=== PATIENT | female | born 1950 | race Caucasian/White ===

== ENCOUNTER 2017-04-22 20:43 | Observation (INO) | payer OTHER ==
[2017-04-22] MEDS ORDERED: ASPIRIN 81 MG PO STA (21:15)
[2017-04-22] MEDS ORDERED: NITROGLYCERIN OINT 1 INCH/GM PACKET TOPICAL STA (21:15)
--- NOTE | 2017-04-22 21:18 | ED ---
General Adult HPI - General Chief complaint: Chest Pain Stated complaint: Chest pain Time Seen by Provider: 04/22/17 21:00 Source: patient, RN notes reviewed Mode of arrival: ambulatory Limitations: no limitations - History of Present Illness Initial comments: Patient is a pleasant 66-year-old female presenting to the emergency department complaining of chest discomfort. Patient has had mild symptoms intermittently throughout the week. Symptoms have been worse the past couple hours. Symptoms are mild at this time rated 3/10. Patient did take one nitroglycerin and aspirin home with some improvement. Discomfort feels like heaviness. There is occasionally radiation to the left shoulder back. No associated dyspnea. Patient does have some associated nausea and sweating. Patient did have a heart attack years ago however is unclear symptoms are similar or not. No leg pain or leg swelling. - Related Data Home Medications Medication Instructions Recorded Confirmed Aspirin 325 mg PO DAILY 10/06/15 10/06/15 Biotin 5 mg PO DAILY 10/06/15 10/06/15 Calcium Carbonate [Calcium] 600 mg PO HS 10/06/15 10/06/15 Carvedilol [Coreg] 12.5 mg PO BID 10/06/15 10/06/15 Garlic 1 tab PO HS 10/06/15 10/06/15 Losartan [Cozaar] 50 mg PO DAILY 10/06/15 10/06/15 Ubidecarenone [Co Q-10] 200 mg PO DAILY 10/06/15 10/06/15 Previous Rx's Medication Instructions Recorded Atorvastatin [Lipitor] 80 mg PO HS #30 tab 10/07/15 Nitroglycerin Sl Tabs [Nitrostat] 0.4 mg SUBLINGUAL Q5M PRN #5 tab 10/07/15 Prasugrel [Effient] 10 mg PO DAILY #30 tab 10/07/15 glipiZIDE [Glucotrol] 10 mg PO AC-BID #60 tablet 10/07/15 metFORMIN HCL [Glucophage] 850 mg PO BID #60 tab 10/07/15 Allergies Allergy/AdvReac Type Severity Reaction Status Date / Time No Known Allergies Allergy Verified 04/22/17 21:44 Review of Systems ROS Statement: Those systems with pertinent positive or pertinent negative responses have been documented in the HPI. ROS Other: All systems not noted in ROS Statement are negative. Constitutional: Denies: fever Eyes: Denies: eye pain ENT: Denies: ear pain Respiratory: Denies: cough, dyspnea Cardiovascular: Reports: chest pain Endocrine: Reports: fatigue Gastrointestinal: Reports: nausea. Denies: abdominal pain Genitourinary: Denies: dysuria Musculoskeletal: Denies: arthralgia Skin: Denies: rash Neurological: Denies: weakness Past Medical History Past Medical History: Coronary Artery Disease (CAD), Hyperlipidemia, Hypertension, Myocardial Infarction (CA) Additional Past Medical History / Comment(s): 10/06/15 Pt presented to [facility] ER with chest pain on Tuesday10/03/15 with SOB and lasted most of that day. Then again with chest pain today. She is admitted with unstable angina and went to the cath lab technologist for stent placement in LAD. Other HX: CA 2009 with ischemic cardiomyopathy. Last Myocardial Infarction Date:: 02/16/10 History of Any Multi-Drug Resistant Organisms: None Reported Past Surgical History: Heart Catheterization With Stent, Orthopedic Surgery, Tubal Ligation Additional Past Surgical History / Comment(s): 10/06/15 PTCA with stent to LAD. 02/16/10 PTCA with stent to LAD, L carpal tunnel release. Past Anesthesia/Blood Transfusion Reactions: No Reported Reaction Date of Last Stent Placement:: 10/06/15 Past Psychological History: No Psychological Hx Reported Smoking Status: Former smoker Past Alcohol Use History: None Reported Past Drug Use History: Marijuana - Past Family History Father Family Medical History: Coronary Artery Disease (CAD), Dementia, Diabetes Mellitus Additional Family Medical History / Comment(s): Father is . He had 4 vessel bypass. Mother Family Medical History: Rheumatoid Arthritis (RA) Additional Family Medical History / Comment(s): Mother is . She had polymyalgia and spinal stenosis. General Exam Limitations: no limitations General appearance: alert, in no apparent distress Head exam: Present: atraumatic Eye exam: Present: normal appearance, PERRL ENT exam: Present: normal oropharynx Neck exam: Present: normal inspection Respiratory exam: Present: normal lung sounds bilaterally. Absent: chest wall tenderness Cardiovascular Exam: Present: regular rate, normal rhythm Expanded Peripheral pulses: 2+: Radial (R), Radial (L), Dorsalis Pedis (R), Dorsalis Pedis (L) GI/Abdominal exam: Present: soft. Absent: tenderness Extremities exam: Present: normal inspection. Absent: pedal edema, calf tenderness Neurological exam: Present: alert Psychiatric exam: Present: normal affect, normal mood Skin exam: Present: normal color Course Vital Signs 04/22/17 04/22/17 20:45 22:11 Temperature 97.9 F 97.7 F Pulse Rate 67 63 Respiratory 18 19 Rate Blood Pressure 185/88 152/79 O2 Sat by Pulse 98 95 Oximetry EKG Findings - EKG Comments: EKG Findings:: Normal sinus rhythm 68. GA 184. QRS 72. QT 424. QTC 450. Normal axis. Normal QRS. No acute ST change. Medical Decision Making - Medical Decision Making Patient reevaluated and somewhat improved. Patient updated on results and plan. Dr. Marcos has been paged for admission for Dr. ramirez. - Lab Data Result diagrams: 04/22/17 21:08 04/22/17 21:08 Lab Results 04/22/17 04/22/17 04/22/17 Range/Units 21:08 21:08 21:08 WBC 6.6 (3.8-10.6) k/uL RBC 4.46 (3.80-5.40) m/uL Hgb 13.6 (11.4-16.0) gm/dL Hct 39.3 (34.0-46.0) % MCV 88.1 (80.0-100.0) fL MCH 30.6 (25.0-35.0) pg MCHC 34.7 (31.0-37.0) g/dL RDW 13.4 (11.5-15.5) % Plt Count 187 (150-450) k/uL Neutrophils % 51 % Lymphocytes % 36 % Monocytes % 6 % Eosinophils % 3 % Basophils % 1 % Neutrophils # 3.4 (1.3-7.7) k/uL Lymphocytes # 2.4 (1.0-4.8) k/uL Monocytes # 0.4 (0-1.0) k/uL Eosinophils # 0.2 (0-0.7) k/uL Basophils # 0.1 (0-0.2) k/uL PT (9.0-12.0) sec INR (<1.2) APTT (22.0-30.0) sec D-Dimer (<0.60) mg/L FEU Sodium 138 (137-145) mmol/L Potassium 3.9 (3.5-5.1) mmol/L Chloride 103 (98-107) mmol/L Carbon Dioxide 22 (22-30) mmol/L Anion Gap 13 mmol/L BUN 15 (7-17) mg/dL Creatinine 0.79 (0.52-1.04) mg/dL Est GFR (MDRD) Af Amer >60 (>60 ml/min/1.73 sqM) Est GFR (MDRD) Non-Af >60 (>60 ml/min/1.73 sqM) Glucose 141 H (74-99) mg/dL Calcium 9.8 (8.4-10.2) mg/dL Magnesium 1.6 (1.6-2.3) mg/dL Total Bilirubin 0.7 (0.2-1.3) mg/dL AST 20 (14-36) U/L ALT 34 (9-52) U/L Alkaline Phosphatase 81 (38-126) U/L Total Creatine Kinase 209 H (30-135) U/L CK-MB (CK-2) 4.2 H* (0.0-2.4) ng/mL CK-MB (CK-2) Rel Index 2.0 Troponin I <0.012 (0.000-0.034) ng/mL Total Protein 7.3 (6.3-8.2) g/dL Albumin 4.7 (3.5-5.0) g/dL 04/22/17 Range/Units 21:08 WBC (3.8-10.6) k/uL RBC (3.80-5.40) m/uL Hgb (11.4-16.0) gm/dL Hct (34.0-46.0) % MCV (80.0-100.0) fL MCH (25.0-35.0) pg MCHC (31.0-37.0) g/dL RDW (11.5-15.5) % Plt Count (150-450) k/uL Neutrophils % % Lymphocytes % % Monocytes % % Eosinophils % % Basophils % % Neutrophils # (1.3-7.7) k/uL Lymphocytes # (1.0-4.8) k/uL Monocytes # (0-1.0) k/uL Eosinophils # (0-0.7) k/uL Basophils # (0-0.2) k/uL PT 11.0 (9.0-12.0) sec INR 1.1 (<1.2) APTT 24.9 (22.0-30.0) sec D-Dimer 0.33 (<0.60) mg/L FEU Sodium (137-145) mmol/L Potassium (3.5-5.1) mmol/L Chloride (98-107) mmol/L Carbon Dioxide (22-30) mmol/L Anion Gap mmol/L BUN (7-17) mg/dL Creatinine (0.52-1.04) mg/dL Est GFR (MDRD) Af Amer (>60 ml/min/1.73 sqM) Est GFR (MDRD) Non-Af (>60 ml/min/1.73 sqM) Glucose (74-99) mg/dL Calcium (8.4-10.2) mg/dL Magnesium (1.6-2.3) mg/dL Total Bilirubin (0.2-1.3) mg/dL AST (14-36) U/L ALT (9-52) U/L Alkaline Phosphatase (38-126) U/L Total Creatine Kinase (30-135) U/L CK-MB (CK-2) (0.0-2.4) ng/mL CK-MB (CK-2) Rel Index Troponin I (0.000-0.034) ng/mL Total Protein (6.3-8.2) g/dL Albumin (3.5-5.0) g/dL - Radiology Data Radiology results: image reviewed (Chest x-ray shows no acute process) Critical Care Time Critical Care Time: Yes Total Critical Care Time: 32 Disposition Clinical Impression: Unstable angina pectoris Disposition: ADMITTED IP TO THIS [facility] Referrals: Catalina Kelley MD [Primary Care Provider] - 1-2 days Decision Time: 22:13
[2017-04-22 21:25] LABS: Basophils # (A) 0.1 k/uL (0-0.2); Basophils % (A) 1 %; CH 32.1; CHCM 36.6; Eosinophils # (A) 0.2 k/uL (0-0.7); Eosinophils % (A) 3 %; HCT 39.3 % (34.0-46.0); HDW 2.56; HGB 13.6 gm/dL (11.4-16.0); Luc # (Auto) 0.14; Luc % (Auto) 2; Lymphocytes # (A) 2.4 k/uL (1.0-4.8); Lymphocytes % (A) 36 %; MCH 30.6 pg (25.0-35.0); MCHC 34.7 g/dL (31.0-37.0); MCV 88.1 fL (80.0-100.0); Monocytes # (A) 0.4 k/uL (0-1.0); Monocytes % (A) 6 %; Neutrophils # (A) 3.4 k/uL (1.3-7.7); Neutrophils % (A) 51 %; RBC 4.46 m/uL (3.80-5.40); RDW 13.4 % (11.5-15.5); WBC 6.6 k/uL (3.8-10.6)
[2017-04-22 21:34] LABS: ALT 34 U/L (9-52); AST 20 U/L (14-36); Alkaline Phosphatase 81 U/L (38-126); Anion Gap 13 mmol/L; Blood Urea Nitrogen 15 mg/dL (7-17); Calcium 9.8 mg/dL (8.4-10.2); Carbon Dioxide 22 mmol/L (22-30); Chloride 103 mmol/L (98-107); Glucose 141 mg/dL (74-99); Magnesium 1.6 mg/dL (1.6-2.3); Non-African American GFR(MDRD) >60 (>60 ml/min/1.73 sqM); Potassium 3.9 mmol/L (3.5-5.1); Sodium 138 mmol/L (137-145); Total Bilirubin 0.7 mg/dL (0.2-1.3); Total Protein 7.3 g/dL (6.3-8.2)
[2017-04-22 21:38] LABS: INR 1.1 (<1.2); Partial Thromboplastin Time 24.9 sec (22.0-30.0)
--- NOTE | 2017-04-22 21:41 | XR ---
EXAMINATION TYPE: XR chest 2V DATE OF EXAM: 04/22/2017 COMPARISON: 10/06/2015 HISTORY: Chest pain TECHNIQUE: Frontal and lateral views of the chest are obtained. FINDINGS: Heart and mediastinum are normal. Lungs are clear. Diaphragm is normal. Bony thorax is int act. There are chest leads. IMPRESSION: Normal chest. No change.
[2017-04-22 21:45] LABS: Creatine Kinase 209 U/L (30-135)
[2017-04-22 21:58] LABS: Troponin I <0.012 ng/mL (0.000-0.034)
[2017-04-22 21:59] LABS: Creatine Kinase MB 4.2 ng/mL (0.0-2.4)
[2017-04-22] MEDS ORDERED: HEPARIN SODIUM,PORCINE 5,000 UNIT/ML 1 ML VIAL IV ONE (22:14)
[2017-04-22] MEDS ORDERED: HEPARIN SODIUM,PORCINE 5,000 UNIT/ML 1 ML VIAL IV PRN (22:14)
[2017-04-22] MEDS ORDERED: NITROGLYCERIN SL TABS 0.4 MG TAB SUBLINGUAL PRN (22:14)
[2017-04-22] MEDS ORDERED: HEPARIN SODIUM,PORCINE/D5W PMX 25,000 UNIT in DEXTROSE/WATER 1 500ML.BAG IV SCH (22:15)
[2017-04-23] MEDS ORDERED: ATORVASTATIN 80 MG TAB PO SCH ×2 (00:16→21:00)
[2017-04-23] MEDS ORDERED: ATORVASTATIN 80 MG TAB PO ONE (00:30)
[2017-04-23] MEDS: CARVEDILOL 12.5 MG TAB PO SCH ×3 (00:57→17:08)
[2017-04-23 03:44] LABS: Mean Platelet Volume 7.4
[2017-04-23 04:17] LABS: Creatine Kinase 166 U/L (30-135)
[2017-04-23 04:18] LABS: Cholesterol 130 mg/dL (<200); HDL Cholesterol 35 mg/dL (40-60)
[2017-04-23 04:31] LABS: Troponin I <0.012 ng/mL (0.000-0.034)
[2017-04-23] MEDS: NITROGLYCERIN OINT 1 INCH/GM PACKET TOPICAL SCH ×4 (06:51→23:08)
[2017-04-23 07:08] LABS: Glucose,Whole Blood 134 mg/dL (75-99)
[2017-04-23] MEDS ORDERED: CARVEDILOL 12.5 MG TAB PO SCH (07:30)
[2017-04-23] MEDS ORDERED: NITROGLYCERIN SL TABS 0.4 MG TAB SUBLINGUAL PRN (09:01)
[2017-04-23] MEDS ORDERED: ATORVASTATIN 80 MG TAB PO STA (09:01)
[2017-04-23] MEDS ORDERED: SODIUM CHLORIDE 0.9% 1,000 ML in EMPTY BAG 1 BAG IV ONE (09:01)
[2017-04-23] MEDS ORDERED: ALPRAZolam 0.5 MG TAB PO PRN (09:01)
[2017-04-23] MEDS ORDERED: ASPIRIN 325 MG TAB PO STA (09:01)
[2017-04-23] MEDS ORDERED: ALPRAZolam 0.25 MG TAB PO PRN (09:01)
[2017-04-23] MEDS: INSULIN LISPRO (humaLOG) 300 UNIT/3 ML VIAL SQ SCH ×4 (09:13→21:36)
[2017-04-23] MEDS: CLOPIDOGREL 75 MG TAB PO SCH (09:17)
[2017-04-23] MEDS: ASCORBIC ACID 500 MG TAB PO SCH (09:17)
[2017-04-23] MEDS: CHOLECALCIFEROL 1,000 UNIT TAB PO SCH (09:17)
[2017-04-23] MEDS: LOSARTAN 50 MG TAB PO SCH (09:17)
[2017-04-23] MEDS: FLUCONAZOLE 100 MG TAB PO SCH (09:18)
--- NOTE | 2017-04-23 09:31 | P.CRDCN ---
History of Present Illness Consult date: 04/23/17 Consult reason: chest pain History of present illness: 66-year-old lady with history of coronary artery disease status post prior angioplasty of LAD most recently in 2016 comes to Hospital complaining of chest pain she describes it as a precordial chest pressure that was moderate intensity radiated to her arms subsequently she had bandlike discomfort in the epigastric area and the time of my evaluation this morning she is pain-free hemodynamically stable and in no apparent distress. Her symptoms came on suddenly and they were addressed. There were no associated symptoms were no clear-cut relieving or exacerbating factors. EKG did not reveal ischemic changes and cardiac enzymes have been negative. I advised the patient undergo cardiac catheterization to evaluate his coronary anatomy and streamline her management. She had been explained of risk benefits and alternatives. She sees my associate Dr. Soto I advised her to stay here until Tuesday and get it done she wishes to have it done over the weekend and go home we will get this done expeditiously Review of Systems Constitutional: Denies chills. Denies fever. Eyes: Denies blurred vision. Denies pain. Ears, nose, mouth and throat: Denies headache. Denies sore throat. Cardiovascular: has chest pain. Denies shortness of breath. Respiratory: Denies cough. Gastrointestinal: Denies abdominal pain. Denies diarrhea. Denies nausea. Denies vomiting. Musculoskeletal: Denies myalgias. Integumentary: Denies pruritus. Denies rash. Neurological: Denies numbness. Denies weakness. Psychiatric: Denies anxiety. Denies depression. Endocrine: Denies fatigue. Denies weight change. Genitourinary: Denies burning, hematuria, frequency of urination. Hematological: No anemia or excess bleeding. Past Medical History Past Medical History: Coronary Artery Disease (CAD), Hyperlipidemia, Hypertension, Myocardial Infarction (MD) Additional Past Medical History / Comment(s): Other HX: MD 2009 with ischemic cardiomyopathy. Last Myocardial Infarction Date:: 02/16/10 History of Any Multi-Drug Resistant Organisms: None Reported Past Surgical History: Heart Catheterization With Stent, Orthopedic Surgery, Tubal Ligation Additional Past Surgical History / Comment(s): 10/06/15 PTCA with stent to LAD. 02/16/10 PTCA with stent to LAD, L carpal tunnel release. Past Anesthesia/Blood Transfusion Reactions: No Reported Reaction Date of Last Stent Placement:: 10/06/15 Past Psychological History: No Psychological Hx Reported Smoking Status: Former smoker Past Alcohol Use History: None Reported Additional Past Alcohol Use History / Comment(s): Pt states she started smoking in 1970 and was 1 1/2 ppd smoker until 11/27/12 when she quit. Past Drug Use History: Marijuana - Past Family History Father Family Medical History: Coronary Artery Disease (CAD), Dementia, Diabetes Mellitus Additional Family Medical History / Comment(s): Father is . He had 4 vessel bypass. Mother Family Medical History: Rheumatoid Arthritis (RA) Additional Family Medical History / Comment(s): Mother is . She had polymyalgia and spinal stenosis. Medications and Allergies Home Medications Medication Instructions Recorded Confirmed Type Calcium Carbonate [Calcium] 600 mg PO DAILY 10/06/15 04/22/17 History Carvedilol [Coreg] 12.5 mg PO BID 10/06/15 04/22/17 History Losartan [Cozaar] 50 mg PO DAILY 10/06/15 04/22/17 History Ubidecarenone [Co Q-10] 100 mg PO DAILY 10/06/15 04/22/17 History Nitroglycerin Sl Tabs [Nitrostat] 0.4 mg SUBLINGUAL Q5M PRN #5 tab 10/07/1503/31 Rx glipiZIDE [Glucotrol] 10 mg PO AC-BID #60 tablet 10/07/15 04/22/17 Rx metFORMIN HCL [Glucophage] 850 mg PO BID #60 tab 10/07/15 04/22/17 Rx Ascorbic Acid [Vitamin C] 500 mg PO DAILY 04/22/17 04/22/17 History Aspirin EC [Ecotrin] 325 mg PO DAILY 04/22/17 04/22/17 History Cholecalciferol [Vitamin D3] 1,000 unit PO DAILY 04/22/17 04/22/17 History Clopidogrel Bisulfate [Plavix] 75 mg PO DAILY 04/22/17 04/22/17 History Simvastatin [Zocor] 40 mg PO HS 04/22/17 04/22/17 History Allergies Allergy/AdvReac Type Severity Reaction Status Date / Time No Known Allergies Allergy Verified 04/22/17 23:22 Physical Exam Vitals: Vital Signs Temp Pulse Pulse Resp BP BP Pulse Ox 04/23/17 08:00 98.0 F 66 18 139/69 97 04/23/17 04:00 97.9 F 61 18 130/66 98 04/23/17 03:13 18 04/22/17 23:25 18 04/22/17 23:10 97.9 F 62 18 146/69 95 04/22/17 22:11 97.7 F 63 19 152/79 95 04/22/17 20:45 97.9 F 67 18 185/88 98 Intake and Output 04/22/17 04/23/17 04/23/17 22:59 06:59 14:59 Intake Total 151.7 Balance 151.7 Intake: IV 40 Heparin Sodium,Porcine/ 40 D5w Pmx 25,000 unit In Dextrose/Water 1 500ml. bag @ 12 UNITS/KG/HR 19. 37 mls/hr IV .Q24H KACIE Rx #:[id number] Intake, IV Titration 111.7 Amount Heparin Sodium,Porcine/ 111.7 D5w Pmx 25,000 unit In Dextrose/Water 1 500ml. bag @ 12 UNITS/KG/HR 19. 37 mls/hr IV .Q24H KACIE Rx #:[id number] Other: Voiding Method Toilet # Voids 2 Weight 80.739 kg General: The patient is awake and alert, in no distress, and does not appear acutely ill. Skin: Skin is warm and dry and no rashes or lesions are noted. Eye: Pupils are equal, round and reactive to light, extra-ocular movements are intact; there is normal conjunctiva bilaterally. Ears, nose, mouth and throat: There are moist mucous membranes and no oral lesions. Neck: The neck is supple, there is no tenderness or JVD. Cardiovascular: [ There is a regular rate and rhythm.][ No murmur, rub or gallop is appreciated.] Respiratory: Lungs are clear to auscultation, respirations are non-labored, breath sounds are equal. Gastrointestinal: Soft, non-distended, non-tender abdomen without masses or organomegaly noted. There is no rebound or guarding present. Bowel sounds are unremarkable. Back: There is no tenderness to palpation in the midline. There is no obvious deformity. Musculoskeletal: Normal ROM, no tenderness, There is no pedal edema. There is no calf tenderness or swelling. Extremities:[ No edema.] Vascular: [Femoral pulse is normal.][ Posterior tibial pulses are normal .][ Dorsalis pedis is palpable.] Neurological: CN II-XII intact. There are no obvious motor or sensory deficits. Speech is normal. Psychiatric: Cooperative, appropriate mood & affect, normal judgment. Results 04/23/17 03:26 04/22/17 21:08 Cardiac Enzymes 04/22/17 04/22/17 04/23/17 Range/Units 21:08 21:08 03:26 AST 20 (14-36) U/L CK-MB (CK-2) 4.2 H* 3.0 H* (0.0-2.4) ng/mL Troponin I <0.012 <0.012 (0.000-0.034) ng/mL Coagulation 04/22/17 04/23/17 Range/Units 21:08 03:26 PT 11.0 (9.0-12.0) sec APTT 24.9 37.1 H (22.0-30.0) sec Lipids 04/23/17 Range/Units 03:26 Triglycerides 166 H (<150) mg/dL Cholesterol 130 (<200) mg/dL HDL Cholesterol 35 L (40-60) mg/dL CBC 04/22/17 04/23/17 Range/Units 21:08 03:26 WBC 6.6 (3.8-10.6) k/uL RBC 4.46 (3.80-5.40) m/uL Hgb 13.6 (11.4-16.0) gm/dL Hct 39.3 (34.0-46.0) % Plt Count 187 183 (150-450) k/uL Comprehensive Metabolic Panel 04/22/17 Range/Units 21:08 Sodium 138 (137-145) mmol/L Potassium 3.9 (3.5-5.1) mmol/L Chloride 103 (98-107) mmol/L Carbon Dioxide 22 (22-30) mmol/L BUN 15 (7-17) mg/dL Creatinine 0.79 (0.52-1.04) mg/dL Glucose 141 H (74-99) mg/dL Calcium 9.8 (8.4-10.2) mg/dL AST 20 (14-36) U/L ALT 34 (9-52) U/L Alkaline Phosphatase 81 (38-126) U/L Total Protein 7.3 (6.3-8.2) g/dL Albumin 4.7 (3.5-5.0) g/dL Current Medications Generic Name Dose Route Start Last Admin Trade Name Freq PRN Reason Stop Dose Admin Alprazolam 0.25 mg 04/23/17 09:01 Xanax PO Q6HR PRN Mild Anxiety Alprazolam 0.5 mg 04/23/17 09:01 Xanax PO Q6HR PRN Moderate Anxiety Ascorbic Acid 500 mg 04/23/17 09:00 04/23/17 09:17 Vitamin C PO 500 mg DAILY KACIE Administration Aspirin 325 mg 04/23/17 09:00 Aspirin PO DAILY [facility] Atorvastatin Calcium 80 mg 04/23/17 00:16 Lipitor PO HS [facility] Calcium Carbonate/Glycine 500 mg 04/23/17 09:00 Tums PO DAILY [facility] Carvedilol 12.5 mg 04/23/17 00:17 04/23/17 09:17 Coreg PO 12.5 mg AC-BID [facility] Administration Cholecalciferol 1,000 unit 04/23/17 09:00 04/23/17 09:17 Vitamin D3 PO 1,000 unit DAILY [facility] Administration Clopidogrel Bisulfate 75 mg 04/23/17 09:00 04/23/17 09:17 Plavix PO 75 mg DAILY [facility] Administration Fluconazole 200 mg 04/23/17 09:00 04/23/17 09:18 Diflucan PO 200 mg DAILY [facility] Administration Glipizide 10 mg 04/23/17 07:30 Glucotrol PO AC-BID [facility] Heparin Sodium (Porcine) 0 unit 04/22/17 22:14 04/23/17 04:20 Heparin IV 4,000 unit Q6HR PRN Administration Low PTT Protocol Heparin Sodium/Dextrose 25,000 500 mls @ 19.37 mls/hr 04/22/17 22:15 04:18 unit/ IV Solution IV 15 units/kg/hr .Q24H KACIE 24.22 mls/hr Protocol Titration 12 UNITS/KG/HR Insulin Human Lispro 0 unit 04/23/17 07:30 04/23/17 09:13 Humalog SQ Not Given ACHS [facility] Protocol Losartan Potassium 50 mg 04/23/17 09:00 04/23/17 09:17 Cozaar PO 50 mg DAILY [facility]IE Administration Nitroglycerin 1 inch 04/23/17 06:00 04/23/17 09:07 Nitro-Bid Oint TOPICAL 1 inch Q6HR KACIE Administration Nitroglycerin 0.4 mg 04/22/17 22:14 Nitrostat SUBLINGUAL Q5M PRN Chest Pain Sodium Chloride 10 ml 04/23/17 09:00 Saline Flush IV BID [facility]ACIE Intake and Output 04/22/17 04/23/17 04/23/17 22:59 06:59 14:59 Intake Total 151.7 Balance 151.7 Intake: IV 40 Heparin Sodium,Porcine/ 40 D5w Pmx 25,000 unit In Dextrose/Water 1 500ml. bag @ 12 UNITS/KG/HR 19. 37 mls/hr IV .Q24H [facility]IE Rx #:[id number] Intake, IV Titration 111.7 Amount Heparin Sodium,Porcine/ 111.7 D5w Pmx 25,000 unit In Dextrose/Water 1 500ml. bag @ 12 UNITS/KG/HR 19. 37 mls/hr IV .Q24H [facility]IE Rx #:[id number] Other: Voiding Method Toilet # Voids 2 Weight 80.739 kg 04/23/17 03:26 04/22/17 21:08 EKG Interpretations (text) Normal sinus rhythm without significant ST-T wave changes Assessment and Plan Plan: Unstable angina Patient will undergo cardiac catheterization for further evaluation. She had been explained of risk benefits and alternatives understood and accepted
[2017-04-23] MEDS: ASPIRIN 325 MG TAB PO SCH (09:32)
[2017-04-23 10:15] LABS: Appearance,Urine Clear (Clear); Bilirubin,Urine Negative (Negative); Glucose,Urine (UA) Negative (Negative); Ketones,Urine Negative (Negative); Leukocyte Esterase,Urine Large (Negative); Mucus,Urine Rare /hpf; Nitrite,Urine Negative (Negative); Particle Count 4754; Protein,Urine Negative (Negative); RBC,Urine 3 /hpf (0-5); Squamous Epithelial Cell,Urine 2 /hpf (0-4); UA Billing (MACRO vs. MICRO) MICRO; Urobilinogen,Urine <2.0 mg/dL (<2.0); WBC,Urine 4 /hpf (0-5)
[2017-04-23 10:36] LABS: Hemoglobin A1C 6.1 % (4.2-6.1)
[2017-04-23 10:54] LABS: Creatine Kinase 150 U/L (30-135)
[2017-04-23 11:06] LABS: Troponin I <0.012 ng/mL (0.000-0.034)
[2017-04-23 11:19] LABS: Creatine Kinase MB 2.8 ng/mL (0.0-2.4)
[2017-04-23] MEDS ORDERED: LIDOCAINE 2% INJ 20 MG/ML (20 ML MDV) ONE (12:01)
[2017-04-23] MEDS ORDERED: IV FLUID CONTINUATION 1,000 ML IV ONE (12:03)
[2017-04-23] MEDS ORDERED: diphenhydrAMINE 50 MG/ML 1 ML VIAL ONE (12:10)
[2017-04-23] MEDS ORDERED: MIDAZOLAM 2 MG/2 ML VIAL ONE (12:10)
[2017-04-23] MEDS ORDERED: MIDAZOLAM 2 MG/2 ML VIAL IV ONE (12:11)
--- NOTE | 2017-04-23 12:11 | ECHOF ---
Referral Reason:cp MEASUREMENTS -------- HEIGHT: 165.1 cm WEIGHT: 80.7 kg BP: 139/69 RVIDd: 3.1 cm (< 3.3) IVSd: 1.2 cm (0.6 - 1.1) LVIDd: 4.1 cm (3.9 - 5.3) LVPWd: 1.3 cm (0.6 - 1.1) IVSs: 1.2 cm LVIDs: 3.4 cm LVPWs: 1.2 cm LA Diam: 2.8 cm (2.7 - 3.8) LAESV Index (A-L): 29.18 ml/m Ao Diam: 3.0 cm (2.0 - 3.7) AV Cusp: 2.0 cm (1.5 - 2.6) LA Diam: 3.9 cm (2.7 - 3.8) MV EXCURSION: 12.458 mm (> 18.000) MV EF SLOPE: 62 mm/s (70 - 150) EPSS: 0.6 cm MV E Vaughn: 0.52 m/s MV DecT: 313 ms MV A Vaughn: 0.68 m/s MV E/A Ratio: 0.77 RAP: 5.00 mmHg RVSP: 12.04 mmHg FINDINGS -------- Sinus rhythm. This was a technically good study. Overall left ventricular systolic function is low-normal with, an EF between 50 - 55 %. Possible Distal Septum Hypokinesis. The right ventricle is normal in size. LA is midly dilated 29-33ml/m2. The right atrial size is normal. The aortic valve is trileaflet, and appears structurally normal. No aortic stenosis or regurgitation. Mild mitral regurgitation is present. Mild tricuspid regurgitation present. There is no evidence of pulmonary hypertension. The right ventricular systolic pressure, as measured by Doppler, is 12.04mmHg. Trace/mild (physiologic) pulmonic regurgitation. The aortic root size is normal. There is no pericardial effusion. CONCLUSIONS -------- 1. Overall left ventricular systolic function is low-normal with, an EF between 50 - 55 %. 2. There is no pericardial effusion. 3. Possible Distal Septum Hypokinesis. 4. LA is midly dilated 29-33ml/m2. 5. The aortic valve is trileaflet, and appears structurally normal. No aortic stenosis or regurgitation. 6. Mild mitral regurgitation is present. 7. Mild tricuspid regurgitation present. 8. There is no evidence of pulmonary hypertension. 9. The right ventricular systolic pressure, as measured by Doppler, is 12.04mmHg. 10. Trace/mild (physiologic) pulmonic regurgitation. [employer] HAND: Ana Huynh RDCS
[2017-04-23] MEDS ORDERED: diphenhydrAMINE 50 MG/ML 1 ML VIAL IVP ONE (12:13)
[2017-04-23] MEDS ORDERED: LIDOCAINE 2% INJ 20 MG/ML SQ ONE (12:13)
[2017-04-23] MEDS ORDERED: fentaNYL (PF) 50 MCG/ML 2 ML AMP ONE (12:16)
[2017-04-23] MEDS ORDERED: fentaNYL (PF) 50 MCG/ML 2 ML AMP IV ONE (12:19)
[2017-04-23] MEDS ORDERED: IOHEXOL 350 MG/ML 125ML BOTTLE INJ ONE (12:38)
--- NOTE | 2017-04-23 12:45 | P.OP ---
Date of Procedure: 04/23/17 Preoperative Diagnosis: Postoperative Diagnosis: Procedure(s) Performed: Implants: Anesthesia: MAC (Total conscious sedation time was 26 minutes) Indications for Procedure: Unstable angina Operative Findings: Referring Physician: Indication: Unstable angina Procedure Note: [] After obtaining informed consent left heart catheterization and coronary angiogram were performed via the right femoral artery using standard Wyatt catheters. Patient tolerated the procedure well without any obvious immediate complications. A femoral angiogram was obtained and Angio-Seal was deployed for hemostasis. Patient received conscious sedation total sedation time was 26 minutes Findings: [] Hemodynamics: Left ventricular end-diastolic pressure is 14-16 mm there is no significant gradient across aortic valve Left Ventriculogram: [Not performed] Angiographic Data:] #1 Left Main Coronary Artery: [Normal size vessel and is free of stenosis] #2 Left Anterior Descending Coronary Artery: Patient had stenting of the proximal and mid LAD stents appeared patent. There was air bubble injection into the LAD inadvertently.. Patient did not have any symptoms and there were no EKG changes #3 Circumflex Coronary Artery: Is a large dominant vessel and is free of significant stenosis #4 Right Coronary Artery: We could not locate the artery. We used a Bony catheter and Neftali posterior catheter. On the previous cardiac cath the right coronary artery was a small nondominant vessel Conclusions: #1: Patent stents within the proximal and mid LAD. #2: Normal left ventricular end-diastolic pressure Plan: Patient's chest discomfort is probably noncardiac in origin. Her management is going to be with continued medical therapy. Description of Procedure:
[2017-04-23] MEDS: SODIUM CHLORIDE 0.9% 1,000 ML IV SCH ×2 (13:00→23:09)
--- NOTE | 2017-04-23 13:59 | P.HPIM ---
History of Present Illness H&P Date: 04/23/17 Chief Complaint: Chest pain Patient is a pleasant 66-year-old female presenting to the emergency department complaining of chest discomfort. Patient states that she had mild symptoms intermittently throughout the week. Symptoms have been worse the past couple hours prior to presentation. Chest pain was mild. Patient did take one nitroglycerin and aspirin home with some improvement. Discomfort feels like heaviness. There is occasionally radiation to the left shoulder back. No associated dyspnea. Patient does have some associated nausea and sweating. Patient did have a heart attack years ago. Patient had angioplasty and stent placement to the mid LAD in 2015. Past Medical History Past Medical History: Coronary Artery Disease (CAD), Hyperlipidemia, Hypertension, Myocardial Infarction ([place]) Additional Past Medical History / Comment(s): Other HX: [place] 2009 with ischemic cardiomyopathy. Last Myocardial Infarction Date:: 02/16/10 History of Any Multi-Drug Resistant Organisms: None Reported Past Surgical History: Heart Catheterization With Stent, Orthopedic Surgery, Tubal Ligation Additional Past Surgical History / Comment(s): 10/06/15 PTCA with stent to LAD. 02/16/10 PTCA with stent to LAD, L carpal tunnel release. Past Anesthesia/Blood Transfusion Reactions: No Reported Reaction Date of Last Stent Placement:: 10/06/15 Past Psychological History: No Psychological Hx Reported Smoking Status: Former smoker Past Alcohol Use History: None Reported Additional Past Alcohol Use History / Comment(s): Pt states she started smoking in 1970 and was 1 1/2 ppd smoker until 11/27/12 when she quit. Past Drug Use History: Marijuana - Past Family History Father Family Medical History: Coronary Artery Disease (CAD), Dementia, Diabetes Mellitus Additional Family Medical History / Comment(s): Father is . He had 4 vessel bypass. Mother Family Medical History: Rheumatoid Arthritis (RA) Additional Family Medical History / Comment(s): Mother is . She had polymyalgia and spinal stenosis. Medications and Allergies Home Medications Medication Instructions Recorded Confirmed Type Calcium Carbonate [Calcium] 600 mg PO DAILY 10/06/15 04/22/17 History Carvedilol [Coreg] 12.5 mg PO BID 10/06/15 04/22/17 History Losartan [Cozaar] 50 mg PO DAILY 10/06/15 04/22/17 History Ubidecarenone [Co Q-10] 100 mg PO DAILY 10/06/15 04/22/17 History Nitroglycerin Sl Tabs [Nitrostat] 0.4 mg SUBLINGUAL Q5M PRN #5 tab 10/07/1503/31 Rx glipiZIDE [Glucotrol] 10 mg PO AC-BID #60 tablet 10/07/15 04/22/17 Rx metFORMIN HCL [Glucophage] 850 mg PO BID #60 tab 10/07/15 04/22/17 Rx Ascorbic Acid [Vitamin C] 500 mg PO DAILY 04/22/17 04/22/17 History Aspirin EC [Ecotrin] 325 mg PO DAILY 04/22/17 04/22/17 History Cholecalciferol [Vitamin D3] 1,000 unit PO DAILY 04/22/17 04/22/17 History Clopidogrel Bisulfate [Plavix] 75 mg PO DAILY 04/22/17 04/22/17 History Simvastatin [Zocor] 40 mg PO HS 04/22/17 04/22/17 History Allergies Allergy/AdvReac Type Severity Reaction Status Date / Time No Known Allergies Allergy Verified 04/22/17 23:22 Physical Exam Vitals: Vital Signs Temp Pulse Pulse Resp BP BP BP 04/23/17 13:11 66 18 04/23/17 08:00 98.0 F 66 18 139/69 04/23/17 04:00 97.9 F 61 18 130/66 04/23/17 03:13 18 04/23/17 01:00 98.2 F 54 L 14 141/72 04/22/17 23:25 18 04/22/17 23:10 97.9 F 62 18 146/69 04/22/17 22:11 97.7 F 63 19 152/79 04/22/17 20:45 97.9 F 67 18 185/88 Pulse Ox 04/23/17 13:11 04/23/17 08:00 97 04/23/17 04:00 98 04/23/17 03:13 04/23/17 01:00 94 L 04/22/17 23:25 04/22/17 23:10 95 04/22/17 22:11 95 04/22/17 20:45 98 Intake and Output 04/22/17 04/23/17 04/23/17 22:59 06:59 14:59 Intake Total 151.7 50 Balance 151.7 50 Intake: IV 40 50 Heparin Sodium,Porcine/ 40 D5w Pmx 25,000 unit In Dextrose/Water 1 500ml. bag @ 12 UNITS/KG/HR 19. 37 mls/hr IV .Q24H K[facility]IE Rx #:[id number] Intake, IV Titration 111.7 Amount Heparin Sodium,Porcine/ 111.7 D5w Pmx 25,000 unit In Dextrose/Water 1 500ml. bag @ 12 UNITS/KG/HR 19. 37 mls/hr IV .Q24H KACIE Rx #:[id number] Other: Voiding Method Toilet Toilet # Voids 2 Weight 80.739 kg HEENT head normocephalic and atraumatic Neck is supple no JVD no goiter no lymphadenopathy no carotid bruit Chest exam reveals a few scattered rhonchi bilaterally no wheezing Cardiac exam reveals regular heart sounds S1 and S2 no gallops no murmurs Abdomen is soft nontender no organomegaly with normal bowel sounds Extremity exam reveals no edema no cyanosis or clubbing Neurological examination reveals no gross focal deficit Results CBC & Chem 7: 04/23/17 03:26 04/22/17 21:08 Labs: Abnormal Lab Results - Last 24 Hours (Table) 04/22/17 04/22/17 04/23/17 Range/Units 21:08 21:08 03:26 APTT (22.0-30.0) sec Glucose 141 H (74-99) mg/dL POC Glucose (mg/dL) (75-99) mg/dL Total Creatine Kinase 209 H 166 H (30-135) U/L CK-MB (CK-2) 4.2 H* 3.0 H* (0.0-2.4) ng/mL Triglycerides (<150) mg/dL HDL Cholesterol (40-60) mg/dL Ur Leukocyte Esterase (Negative) Urine Mucus (None) /hpf 04/23/17 04/23/17 04/23/17 Range/Units 03:26 03:26 07:01 APTT 37.1 H (22.0-30.0) sec Glucose (74-99) mg/dL POC Glucose (mg/dL) 134 H (75-99) mg/dL Total Creatine Kinase (30-135) U/L CK-MB (CK-2) (0.0-2.4) ng/mL Triglycerides 166 H (<150) mg/dL HDL Cholesterol 35 L (40-60) mg/dL Ur Leukocyte Esterase (Negative) Urine Mucus (None) /hpf 04/23/17 04/23/17 Range/Units 09:56 09:56 APTT (22.0-30.0) sec Glucose (74-99) mg/dL POC Glucose (mg/dL) (75-99) mg/dL Total Creatine Kinase 150 H (30-135) U/L CK-MB (CK-2) 2.8 H* (0.0-2.4) ng/mL Triglycerides (<150) mg/dL HDL Cholesterol (40-60) mg/dL Ur Leukocyte Esterase Large H (Negative) Urine Mucus Rare H (None) /hpf Thrombosis Risk Factor Assmnt - Choose All That Apply Any of the Below Risk Factors Present?: Yes Each Factor Represents 1 point: Obesity (BMI >25) Other Risk Factors: Yes Each Risk Factor Represents 2 Points: Age 61-74 years Other congenital or acquired thrombophilia - If yes, enter type in comment: No Thrombosis Risk Factor Assessment Total Risk Factor Score: 3 Thrombosis Risk Factor Assessment Level: Moderate Risk Assessment and Plan Plan: Episode of chest pain in a 66-year-old female was known history of coronary artery disease and previous stent placement to his LAD. Patient was evaluated by cardiology and underwent cardiac catheterization this morning. Stent was patent and no intervention was recommended at this time. Recommendation were to continue was medical management Patient will be monitored until tomorrow and possible discharge to home tomorrow
[2017-04-23] MEDS: glipiZIDE 10 MG TAB PO SCH ×2 (14:43→17:08)
[2017-04-23] MEDS: CALCIUM CARBONATE 500 MG CHEWABLE PO SCH (15:14)
[2017-04-23 16:52] LABS: Glucose,Whole Blood 133 mg/dL (75-99)
[2017-04-23 20:41] LABS: Glucose,Whole Blood 94 mg/dL (75-99)
[2017-04-24] MEDS: NITROGLYCERIN OINT 1 INCH/GM PACKET TOPICAL SCH ×2 (03:07→13:08)
[2017-04-24 07:04] LABS: Glucose,Whole Blood 130 mg/dL (75-99)
[2017-04-24] MEDS: INSULIN LISPRO (humaLOG) 300 UNIT/3 ML VIAL SQ SCH ×2 (07:58→13:08)
[2017-04-24] MEDS: LOSARTAN 50 MG TAB PO SCH (08:10)
[2017-04-24] MEDS: FLUCONAZOLE 100 MG TAB PO SCH (08:10)
[2017-04-24 08:11] VITALS: RESP 16
[2017-04-24] MEDS: CLOPIDOGREL 75 MG TAB PO SCH (08:11)
[2017-04-24] MEDS: CALCIUM CARBONATE 500 MG CHEWABLE PO SCH (08:11)
[2017-04-24] MEDS: CHOLECALCIFEROL 1,000 UNIT TAB PO SCH (08:11)
[2017-04-24] MEDS: CARVEDILOL 12.5 MG TAB PO SCH (08:11)
[2017-04-24] MEDS: glipiZIDE 10 MG TAB PO SCH (08:11)
[2017-04-24] MEDS: ASCORBIC ACID 500 MG TAB PO SCH (08:11)
[2017-04-24] MEDS: ASPIRIN 325 MG TAB PO SCH (08:11)
--- NOTE | 2017-04-24 11:01 | P.PN ---
Subjective Principal diagnosis: Unstable angina Patient is doing well this morning free of significant cardiac symptoms had a cardiac cath that showed patent stents within the LAD stable to be discharged home with outpatient follow-up with Dr. Soto Objective - Vital Signs Vital signs: Vital Signs Temp 98.0 F 04/24/17 08:00 Pulse 63 04/24/17 08:00 Resp 16 04/24/17 08:00 BP 159/95 04/24/17 08:00 Pulse Ox 98 04/24/17 08:00 Intake & Output 04/23/17 04/24/17 04/24/17 18:59 06:59 18:59 Intake Total 50 700 Balance 50 700 Intake: IV 50 Oral 700 Other: Voiding Method Toilet Toilet Toilet # Voids 2 2 - Exam Comfortable at rest vital signs are stable chest exam reveals good air entry bilaterally heart exam reveals first and second heart sounds no gallop groin is free of bleeding bradycardia hematoma for pulses are intact - Labs CBC & Chem 7: 04/23/17 03:26 04/22/17 21:08 Labs: Abnormal Lab Results - Last 24 Hours (Table) 04/23/17 04/23/17 04/24/17 Range/Units 09:56 16:50 07:02 POC Glucose (mg/dL) 133 H 130 H (75-99) mg/dL Total Creatine Kinase 150 H (30-135) U/L CK-MB (CK-2) 2.8 H* (0.0-2.4) ng/mL Microbiology - Last 24 Hours (Table) 04/23/17 09:56 Urine Culture - Preliminary Urine,Clean Catch Assessment and Plan Plan: Unstable angina Status post cardiac cath will continue medical therapy follow-up with
[2017-04-24 12:05] LABS: Glucose,Whole Blood 106 mg/dL (75-99)
[2017-04-24 12:23] VITALS: BP 152/89; PULSE 69; TEMP 98.2
--- NOTE | 2017-04-24 14:18 | P.DS ---
Providers Date of admission: 04/22/17 22:14 Expected date of discharge: 04/24/17 Attending physician: Елена Marcos Consults: 04/22/17 22:14 Consult Physician Urgent Consulting Provider: Cordelia Soto Consult Reason/Comments: ua Do you want consulting provider notified?: Yes Primary care physician: [facility] Course: diagnoses on discharge: #1 Episode of chest pain in a 66-year-old female was known history of coronary artery disease and previous stent placement to his LAD. #2 underlying history of hypertension #3 underlying history of hyperlipidemia Patient is a pleasant 66-year-old female presenting to the emergency department complaining of chest discomfort. Patient states that she had mild symptoms intermittently throughout the week. Symptoms have been worse the past couple hours prior to presentation. Chest pain was mild. Patient did take one nitroglycerin and aspirin home with some improvement. Discomfort feels like heaviness. There is occasionally radiation to the left shoulder back. No associated dyspnea. Patient does have some associated nausea and sweating. Patient did have a heart attack years ago. Patient had angioplasty and stent placement to the mid LAD in 2016. Patient admitted to 24-hour observation She was evaluated by cardiology she underwent cardiac catheterization which did not reveal any evidence of any new lesion. No angioplasty or stent placement was done. Patient was cleared by cardiology for discharge. During this admission patient had evidence of urinary tract infection she was given 1 dose of IV Rocephin urine culture was sent to the lab patient should be followed as outpatient repeat UA and further antibiotic treatment can be done as outpatient if needed. Patient also is having vaginal itching and discharge she was given a course of oral Diflucan. She will be followed in that regard by her primary care physician Plan - Discharge Summary New Discharge Prescriptions: New Fluconazole [Diflucan] 200 mg PO DAILY tab Continue Carvedilol [Coreg] 12.5 mg PO BID Losartan [Cozaar] 50 mg PO DAILY Ubidecarenone [Co Q-10] 100 mg PO DAILY Calcium Carbonate [Calcium] 600 mg PO DAILY Nitroglycerin Sl Tabs [Nitrostat] 0.4 mg SUBLINGUAL Q5M PRN #5 tab PRN Reason: Chest Pain glipiZIDE [Glucotrol] 10 mg PO AC-BID #60 tablet metFORMIN HCL [Glucophage] 850 mg PO BID #60 tab Clopidogrel Bisulfate [Plavix] 75 mg PO DAILY Cholecalciferol [Vitamin D3] 1,000 unit PO DAILY Ascorbic Acid [Vitamin C] 500 mg PO DAILY Simvastatin [Zocor] 40 mg PO HS Aspirin EC [Ecotrin] 325 mg PO DAILY Discharge Medication List Calcium Carbonate [Calcium] 600 mg PO DAILY 10/06/15 [History] Carvedilol [Coreg] 12.5 mg PO BID 10/06/15 [History] Losartan [Cozaar] 50 mg PO DAILY 10/06/15 [History] Ubidecarenone [Co Q-10] 100 mg PO DAILY 10/06/15 [History] Nitroglycerin Sl Tabs [Nitrostat] 0.4 mg SUBLINGUAL Q5M PRN #5 tab 10/07/15 [Rx] glipiZIDE [Glucotrol] 10 mg PO AC-BID #60 tablet 10/07/15 [Rx] metFORMIN HCL [Glucophage] 850 mg PO BID #60 tab 10/07/15 [Rx] Ascorbic Acid [Vitamin C] 500 mg PO DAILY 04/22/17 [History] Aspirin EC [Ecotrin] 325 mg PO DAILY 04/22/17 [History] Cholecalciferol [Vitamin D3] 1,000 unit PO DAILY 04/22/17 [History] Clopidogrel Bisulfate [Plavix] 75 mg PO DAILY 04/22/17 [History] Simvastatin [Zocor] 40 mg PO HS 04/22/17 [History] Fluconazole [Diflucan] 200 mg PO DAILY tab 04/24/17 [Rx] Follow up Appointment(s)/Referral(s): Cordelia Soto MD [STAFF PHYSICIAN] - 1 Week Catalina Kelley MD [Primary Care Provider] - 1-2 days Activity/Diet/Wound Care/Special Instructions: [facility]in check in one week. office will call with appt.
== END 2017-04-24 15:45 | disposition home or self-care (01) ==
LOC: EC 20:43 → 3OBS 22:14
PROVIDERS: ADMIT Internal Medicine; ATTEND Internal Medicine
DX: R07.89 Other chest pain (principal); I25.10 Atherosclerotic heart disease of native coronary artery without angina pectoris; I25.2 Old myocardial infarction; E78.5 Hyperlipidemia, unspecified; I10 Essential (primary) hypertension; Z79.899 Other long term (current) drug therapy; Z79.82 Long term (current) use of aspirin; Z79.84 Long term (current) use of oral hypoglycemic drugs; Z79.02 Long term (current) use of antithrombotics/antiplatelets; Z95.5 Presence of coronary angioplasty implant and graft; Z82.49 Family history of ischemic heart disease and other diseases of the circulatory system; Z87.891 Personal history of nicotine dependence; R11.0 Nausea; N39.0 Urinary tract infection, site not specified; L29.8 Other pruritus; N89.8 Other specified noninflammatory disorders of vagina
CPT/HCPCS: 99152; 99153; 99291 ×2; 93005 ×2; 96361; 96365; 96366; 96372 ×2; 36415; 93306; 93458; 85379; 80061; 80053; 83036; 82550 ×2; 82553 ×2; 83735; 84484 ×2; 85025; 85049; 85610; 85730 ×2; 81001; 87086; 71020; G0378 ×3; C1760; C1894; C1769; J2001; J2250; J1200; J1644 ×3; J0696; J3010; Q9967; 99285

== ENCOUNTER 2019-06-11 17:38 | Emergency (ER) | payer MEDICARE, OTHER ==
[2019-06-11] MEDS ORDERED: LABETALOL 5 MG/ML VIAL MDV IVP STA (18:01)
--- NOTE | 2019-06-11 18:02 | ED ---
General Adult HPI - General Chief complaint: Recheck/Abnormal Lab/Rx Stated complaint: High blood pressure Time Seen by Provider: 06/11/19 17:45 Source: patient Mode of arrival: ambulatory Limitations: no limitations - History of Present Illness Initial comments: Dictation was produced using [employer] dictation software. please excuse any grammatical, word or spelling errors. Chief Complaint: 68-year-old female sent in from nurse practitioner for elevated blood pressure. History of Present Illness: 68-year-old female she was at [facility] where she saw the nurse practitioner. Patient went to seek medical attention because she's been having elevated blood pressure since yesterday. Patient also noted that she had some tightness to her lower back. Patient is concerned that she was having a heart attack . She had some back pain the last time she had a heart attack. Patient is on antihypertensive medications. She was seen at the office EKG was performed and vitals were performed. She has systolic measured at 200s. Patient has history of hypertension for which she takes beta ross and losartan. She denies any chest pain. She states she's been also having intermittent headaches for the last several weeks. She states that they would last for several seconds localized to the bilateral frontal areas. States that they would occur intermittently. She denies any headache symptoms at this time. Denies any focal neurologic deficits. The reason she was sent here according the patient was further blood pressure elevation. The ROS documented in this emergency department record has been reviewed and confirmed by me. Those systems with pertinent positive or negative responses have been documented in the HPI. All other systems are other negative and/or noncontributory. PHYSICAL EXAM: General Impression: Alert and oriented x3, not in acute distress HEENT: Normocephalic atraumatic, extra-ocular movements intact, pupils equal and reactive to light bilaterally, mucous membranes moist. Cardiovascular: Heart regular rate and rhythm, S1&S2 audible, no murmurs, rubs or gallops Chest: Lungs clear to auscultation bilaterally, no rhonchi, no wheeze, no rales Abdomen: Bowel sounds present, abdomen soft, non-tender, non-distended, no organomegaly Musculoskeletal: Pulses present and equal in all extremities, no peripheral edema Motor: no focal deficits noted Neurological: CN II-XII grossly intact, no focal motor or sensory deficits noted Skin: Intact with no visualized rashes Psych: Normal affect and mood ED course: 68-year-old female presents with multiple complaints. The main reason she is sent to the emergency department from [facility] was for elevated blood pressures. Vital signs upon arrival shows blood pressure 227/108, worse vital signs within acceptable limits. Given patient's symptomatology highly doubt this is related to acute coronary syndrome given that patient has lower back pain and headaches. She denies any chest pain or shortness of breath. Laboratory evaluation obtained. CBC, metabolic panel, urinalysis is unremarkable. Pelvis x-ray lumbar spine x-ray brain CT was obtained showing no acute processes. Patient denies any symptoms at this time. At this point highly doubt that any serious pathologic process occurring at this time. Patient clinical presentation consistent with asymptomatic hypertension. Vision clear for discharge she is told to follow-up with her PCP for outpatient management of high blood pressures. Return parameters discussed. EKG interpretation: Ventricular rate 66, normal sinus rhythm, WV interval 190, Q 68, QTc 440. No WV prolongation, no QTC prolongation, no ST or T-wave changes noted. EKG compared to 04/23/2017 showing no changes. Overall, this EKG is unremarkable - Related Data Home Medications Medication Instructions Recorded Confirmed Calcium Carbonate [Calcium] 600 mg PO HS 10/06/15 06/11/19 Carvedilol [Coreg] 12.5 mg PO BID 10/06/15 06/11/19 Ubidecarenone [Co Q-10] 100 mg PO DAILY 10/06/15 06/11/19 Ascorbic Acid [Vitamin C] 500 mg PO DAILY 04/22/17 06/11/19 Aspirin EC [Ecotrin] 325 mg PO DAILY 04/22/17 06/11/19 Cholecalciferol [Vitamin D3 (25 2,000 unit PO HS 04/22/17 06/11/19 Mcg = 1000 Iu)] Losartan Potassium 100 mg PO DAILY 06/11/19 06/11/19 Simvastatin [Zocor] 80 mg PO HS 06/11/19 06/11/19 Previous Rx's Medication Instructions Recorded glipiZIDE [Glucotrol] 10 mg PO AC-BID #60 tablet 10/07/15 metFORMIN HCL [Glucophage] 850 mg PO BID #60 tab 10/07/15 Allergies Allergy/AdvReac Type Severity Reaction Status Date / Time No Known Allergies Allergy Verified 06/11/19 18:03 Review of Systems ROS Statement: Those systems with pertinent positive or pertinent negative responses have been documented in the HPI. ROS Other: All systems not noted in ROS Statement are negative. Past Medical History Past Medical History: Coronary Artery Disease (CAD), Hyperlipidemia, Hypertension, Myocardial Infarction ([place]) Additional Past Medical History / Comment(s): Other HX: [place] 2009 with ischemic cardiomyopathy. Last Myocardial Infarction Date:: 02/16/10 History of Any Multi-Drug Resistant Organisms: None Reported Past Surgical History: Heart Catheterization With Stent, Orthopedic Surgery, Tubal Ligation Additional Past Surgical History / Comment(s): 10/06/15 PTCA with stent to LAD. 02/16/10 PTCA with stent to LAD, L carpal tunnel release. Past Anesthesia/Blood Transfusion Reactions: No Reported Reaction Date of Last Stent Placement:: 10/06/15 Past Psychological History: No Psychological Hx Reported Smoking Status: Former smoker Past Alcohol Use History: None Reported Past Drug Use History: Marijuana - Past Family History Father Family Medical History: Coronary Artery Disease (CAD), Dementia, Diabetes Mellitus Additional Family Medical History / Comment(s): Father is . He had 4 vessel bypass. Mother Family Medical History: Rheumatoid Arthritis (RA) Additional Family Medical History / Comment(s): Mother is . She had polymyalgia and spinal stenosis. General Exam Limitations: no limitations Course Vital Signs 06/11/19 06/11/19 06/11/19 17:40 19:30 20:10 Temperature 98.1 F Pulse Rate 71 64 60 Respiratory 18 16 18 Rate Blood Pressure 227/108 183/93 175/82 O2 Sat by Pulse 98 97 97 Oximetry Medical Decision Making - Lab Data Result diagrams: 06/11/19 18:14 06/11/19 18:14 Lab Results 06/11/19 06/11/19 06/11/19 Range/Units 18:14 18:14 20:14 WBC 5.8 (3.8-10.6) k/uL RBC 4.50 (3.80-5.40) m/uL Hgb 12.9 (11.4-16.0) gm/dL Hct 38.6 (34.0-46.0) % MCV 85.9 (80.0-100.0) fL MCH 28.7 (25.0-35.0) pg MCHC 33.5 (31.0-37.0) g/dL RDW 12.8 (11.5-15.5) % Plt Count 216 (150-450) k/uL Neutrophils % 54 % Lymphocytes % 35 % Monocytes % 5 % Eosinophils % 2 % Basophils % 1 % Neutrophils # 3.2 (1.3-7.7) k/uL Lymphocytes # 2.1 (1.0-4.8) k/uL Monocytes # 0.3 (0-1.0) k/uL Eosinophils # 0.1 (0-0.7) k/uL Basophils # 0.0 (0-0.2) k/uL ESR 21 H (0-20) mm/hr Sodium 141 (137-145) mmol/L Potassium 4.0 (3.5-5.1) mmol/L Chloride 107 (98-107) mmol/L Carbon Dioxide 25 (22-30) mmol/L Anion Gap 9 mmol/L BUN 14 (7-17) mg/dL Creatinine 0.75 (0.52-1.04) mg/dL Est GFR (CKD-EPI)AfAm >90 (>60 ml/min/1.73 sqM) Est GFR (CKD-EPI)NonAf 83 (>60 ml/min/1.73 sqM) Glucose 126 H (74-99) mg/dL Calcium 9.8 (8.4-10.2) mg/dL Magnesium 1.8 (1.6-2.3) mg/dL C-Reactive Protein <5.0 (<10.0) mg/L Urine Color Light Yellow Urine Appearance Clear (Clear) Urine pH 6.5 (5.0-8.0) Ur Specific [place] 1.011 (1.001-1.035) Urine Protein Negative (Negative) Urine Glucose (UA) Negative (Negative) Urine Ketones Trace H (Negative) Urine Blood Negative (Negative) Urine Nitrite Negative (Negative) Urine Bilirubin Negative (Negative) Urine Urobilinogen <2.0 (<2.0) mg/dL Ur Leukocyte Esterase Large H (Negative) Urine RBC 2 (0-5) /hpf Urine WBC 5 (0-5) /hpf Ur Squamous Epith Cells 1 (0-4) /hpf Disposition Clinical Impression: Hypertension Disposition: HOME SELF-CARE Condition: Good Instructions (If sedation given, give patient instructions): Hypertension (ED) Is patient prescribed a controlled substance at d/c from ED?: No Referrals: Catalina Kelley MD [Primary Care Provider] - 1-2 days Time of Disposition: 20:34
[2019-06-11 18:31] LABS: Basophils % (A) 1 %; Eosinophils # (A) 0.1 k/uL (0-0.7); Eosinophils % (A) 2 %; HCT 38.6 % (34.0-46.0); HGB 12.9 gm/dL (11.4-16.0); Lymphocytes # (A) 2.1 k/uL (1.0-4.8); Lymphocytes % (A) 35 %; MCH 28.7 pg (25.0-35.0); MCHC 33.5 g/dL (31.0-37.0); MCV 85.9 fL (80.0-100.0); Mean Platelet Volume 6.2; Monocytes # (A) 0.3 k/uL (0-1.0); Monocytes % (A) 5 %; Neutrophils # (A) 3.2 k/uL (1.3-7.7); Neutrophils % (A) 54 %; Platelet Count 216 k/uL (150-450); RDW 12.8 % (11.5-15.5); WBC 5.8 k/uL (3.8-10.6)
[2019-06-11 18:33] LABS: African American GFR (CKD) >90 (>60 ml/min/1.73 sqM); Anion Gap 9 mmol/L; Blood Urea Nitrogen 14 mg/dL (7-17); C Reactive Protein <5.0 mg/L (<10.0); Calcium 9.8 mg/dL (8.4-10.2); Carbon Dioxide 25 mmol/L (22-30); Chloride 107 mmol/L (98-107); Glucose 126 mg/dL (74-99); Magnesium 1.8 mg/dL (1.6-2.3); Sodium 141 mmol/L (137-145)
--- NOTE | 2019-06-11 18:38 | CT ---
EXAMINATION TYPE: CT brain wo con DATE OF EXAM: 06/11/2019 COMPARISON: None HISTORY: Headache and hypertension. CT DLP: 1054.4 mGycm Automated exposure control for dose reduction was used. FINDINGS: Ventricles have normal size. There is no mass effect nor midline shift. There is no sign of intracran ial hemorrhage. Calvarium is intact. IMPRESSION: NEGATIVE HEAD CT SCAN.
--- NOTE | 2019-06-11 18:48 | XR ---
EXAMINATION TYPE: XR lumbar spine 2 or 3V DATE OF EXAM: 06/11/2019 COMPARISON: NONE HISTORY: Pain TECHNIQUE: 3 views FINDINGS: Lumbar vertebra have normal alignment. Posterior elements are intact. Disc spaces are fairl y normal. Sacroiliac joints appear intact. IMPRESSION: Negative lumbar spine exam. No fracture.
--- NOTE | 2019-06-11 18:49 | XR ---
EXAMINATION TYPE: XR pelvis AP view DATE OF EXAM: 06/11/2019 COMPARISON: NONE HISTORY: Pain TECHNIQUE: Single view FINDINGS: The pelvic ring is intact. There is some calcification there is amorphous in the pelvis on the right side that could be calcified fibroid. Sacroiliac joints are intact. Proximal femurs and hip joints are intact. Hip joint spaces are fairly normal. IMPRESSION: Negative exam. No fracture. Normal hip joint spaces.
[2019-06-11] MEDS ORDERED: KETOROLAC 30 MG/ML 1 ML VIAL IVP STA (19:02)
[2019-06-11] MEDS ORDERED: SODIUM CHLORIDE 0.9% 1,000 ML IV STA (19:02)
[2019-06-11 19:51] LABS: Erythrocyte Sedimentation Rate 21 mm/hr (0-20)
[2019-06-11 20:11] VITALS: BP 175/82
[2019-06-11 20:26] LABS: Appearance,Urine Clear (Clear); Bilirubin,Urine Negative (Negative); Blood,Urine Negative (Negative); Color,Urine Light Yellow; Glucose,Urine (UA) Negative (Negative); Ketones,Urine Trace (Negative); Leukocyte Esterase,Urine Large (Negative); Nitrite,Urine Negative (Negative); PH, Urine 6.5 (5.0-8.0); Protein,Urine Negative (Negative); RBC,Urine 2 /hpf (0-5); Specific Gravity,Urine 1.011 (1.001-1.035); Squamous Epithelial Cell,Urine 1 /hpf (0-4); Urobilinogen,Urine <2.0 mg/dL (<2.0); WBC,Urine 5 /hpf (0-5)
[2019-06-11 20:47] VITALS: PULSE 74; RESP 16; TEMP 98.2
== END 2019-06-11 20:40 | disposition home or self-care (01) ==
LOC: EC 17:38
DX: I10 Essential (primary) hypertension (principal); I25.10 Atherosclerotic heart disease of native coronary artery without angina pectoris; E78.5 Hyperlipidemia, unspecified; I25.2 Old myocardial infarction; I25.5 Ischemic cardiomyopathy; Z95.5 Presence of coronary angioplasty implant and graft; Z87.891 Personal history of nicotine dependence; Z79.82 Long term (current) use of aspirin; Z79.899 Other long term (current) drug therapy
CPT/HCPCS: 36415; 93005; 80048; 85652; 83735; 85025; 86140; 81001; 72100; 72170; 70450; 99284; 96374; 96375; 96361; J1885

== ENCOUNTER 2021-03-13 07:35 | Day surgery (SDC) | payer MEDICARE ==
[2021-03-11 11:47] VITALS: BMI 29.0
[~2021-03-13 07:35] MED LIST: LACTATED RINGERS 1,000 ML IV SCH; LIDOCAINE 1% (10MG/ML) FOR IV START INTRADERMA PRN
[2021-03-13 08:00] LABS: Glucose,Whole Blood 215 mg/dL (75-99)
[2021-03-13] MEDS ORDERED: LACTATED RINGERS 1,000 ML IV ONE (08:02)
[2021-03-13 08:03] VITALS: TEMP 97.8
[2021-03-13] MEDS ORDERED: PROPOFOL 10 MG/ML 20 ML VIAL IV ONE (08:19)
--- NOTE | 2021-03-13 08:40 | P.PCN ---
Date of Procedure: 03/13/21 Procedure(s) Performed: BRIEF HISTORY: Patient is a 70-year-old pleasant white female scheduled for an elective colonoscopy as a part of screening for colorectal neoplasia. PROCEDURE PERFORMED: Colonoscopy with snare polypectomy. PREOPERATIVE DIAGNOSIS: Screening for colon cancer. IV sedation per Anesthesia. PROCEDURE: After informed consent was obtained, the patient, was brought into the endoscopy unit. IV sedation was administered by Anesthesia under continuous monitoring. Digital rectal examination was normal. Initially the Olympus CF-160 flexible video colonoscope was then inserted in the rectum, gradually advanced into the cecum without any difficulty. Careful examination was performed as the scope was gradually being withdrawn. Ileocecal valve and the appendiceal orifice were visualized and appeared normal. Prep was excellent. Mucosa of the cecum, ascending colon, transverse colon, descending colon appeared normal. In the proximal sigmoid colon at 40 cm from the anal was there was a 2 cm pedunculated polyp that was removed by snare polypectomy. There were 2 polyps in the rec tosigmoid colon measuring 5 mm in size removed by snare polypectomy. In the rectum there was a 1 cm polyp removed by snare polypectomy. Retroflexion was performed in the rectum and no lesions were seen. The patient tolerated the procedure well. IMPRESSION: 2 cm pedunculated proximal sigmoid colon polyp status post polypectomy 5 mm 2 rectosigmoid polyps status post polypectomy 1 cm rectal polyp status post polypectomy RECOMMENDATIONS: Findings of this examination were discussed with the patientas well as her family. She was advised to follow with the biopsy results. If the biopsy shows an adenoma she can have a repeat colonoscopy in 3 years].
[2021-03-13 09:09] VITALS: BP 166/80; PULSE 60; RESP 18
== END 2021-03-13 09:25 | disposition home or self-care (01) ==
LOC: ORWHC2ENDO 07:35
PROVIDERS: ATTEND Internal Medicine Gastroenterology
DX: Z12.11 Encounter for screening for malignant neoplasm of colon (principal); K62.1 Rectal polyp; D17.5 Benign lipomatous neoplasm of intra-abdominal organs; I25.10 Atherosclerotic heart disease of native coronary artery without angina pectoris; I25.2 Old myocardial infarction; I10 Essential (primary) hypertension; E78.5 Hyperlipidemia, unspecified; E11.9 Type 2 diabetes mellitus without complications; Z79.84 Long term (current) use of oral hypoglycemic drugs
CPT/HCPCS: 45385; 88305; J2704

== ENCOUNTER → 2021-07-21 | Outpatient (CLI) | payer MEDICARE ==
--- NOTE | 2021-07-21 12:18 | BD ---
EXAMINATION TYPE: Axial Bone Density DATE OF EXAM: 07/21/2021 COMPARISON: Prior DEXA bone scan report 2008. CLINICAL HISTORY: Postmenopausal female. Height: 5 FT 5 IN Weight: 183 FRAX RISK QUESTIONS: Alcohol (3 or more units per day): NO Family History (Parent hip fracture): NO Glucocorticoids (More than 3mos): NO (Ex: prednisone, prednisolone, methylprednisolone, dexamethasone, and hydrocortisone). History of Fracture in Adulthood: NO Secondary Osteoporosis: 1. Type 1 Diabetes: NO 2. Hyperthyroidism: NO 3. Menopause before 45: NO 4. Malnutrition: NO 5. Chronic liver disease: NO Rheumatoid Arthritis: NO Current Tobacco Use: NO RISK FACTORS HISTORY OF: Surgery to Spine/Hip(right/left)/Wrist (right/left): NO Family History of Osteoporosis: UNSURE Active: YES Diet low in dairy products/other sources of calcium: NO Postmenopausal woman: YES Take estrogen and/or progesterone medications: NO Lost more than 2 inches in height since high school: NO Frequent falls: NO Poor Health: GOOD Hyperparathyroidism: NO Adrenal Insufficiency: NO MEDICATIONS: Additional Medications: LOSARTAN, SIMVASTATIN, METFORMIN, GLIPIZIDE, HEART MEDS Additional History: CARPAL TUNNEL SURG EXAM MEASUREMENTS: Bone mineral densitometry was performed using the [employer] System. Bone mineral density as measured about the Lumbar spine is: ----- L1-L4(G/cm2): 1.381 T Score Values are as follows: ----- L2: 1.9 ----- L3: 2.0 ----- L4: 1.4 ----- L1-L4: 1.7 Bone mineral density has: INCREASED 8.9 % since study of: 2008 Bone mineral density about the R hip (g/cm2): 1.050 Bone mineral density about the L hip (g/cm2): 1.038 T Score values are as follows: -----R Neck: 0.1 -----L Neck: 0.0 -----R Total: -0.3 -----L Total: 0.2 Bone mineral density has: DECREASED -6.3 % since study of: 2008 IMPRESSION: Normal (Values between +1 and -1 indicate normal bone mass). Consider repeating this study in 5 year s or sooner if there is some new clinical indication. NOTE: T-SCORE=SD OF THE YOUNG ADULT MEAN.
--- NOTE | 2021-07-22 12:36 | MM ---
Reason for exam: screening (asymptomatic). Last mammogram was performed 12 years ago. History: Patient is postmenopausal. Family history of breast cancer in sister at age 50. 4 cyst aspirations of the right breast. Took estrogen for 1 year. Took progesterone for 1 year. Physical Findings: A clinical breast exam by your physician is recommended on an annual basis and results should be correlated with mammographic findings. MG 3D Screening Mammo W/Cad Bilateral CC and MLO view(s) were taken. Prior study comparison: July 09, 2009, bilateral digital screening mammogram. There are scattered fibroglandular densities. Finding: There is a 10 mm high density, oval mass located 5-5 cm from the nipple in the 12 o'clock middle position of the right breast and a 4mm round mass in the subareolar right breast. New finding since July 09, 2009. ASSESSMENT: Incomplete: need additional imaging evaluation, BI-RAD 0 RECOMMENDATION: Ultrasound of the right breast. [facility] will attempt to contact patient to return for ultrasound.
== END | disposition home or self-care (01) ==
LOC: RADMAMWWP 08:36
PROVIDERS: ATTEND Family Medicine
DX: Z12.31 Encounter for screening mammogram for malignant neoplasm of breast (principal); Z78.0 Asymptomatic menopausal state; Z80.3 Family history of malignant neoplasm of breast
CPT/HCPCS: 77063; 77067; 77080

== ENCOUNTER → 2021-08-11 | Outpatient (CLI) | payer MEDICARE ==
--- NOTE | 2021-08-11 10:35 | USB ---
Reason for exam: additional evaluation requested from abnormal screening. History: Patient is postmenopausal. Family history of breast cancer in sister at age 50. 4 cyst aspirations of the right breast. Took estrogen for 1 year. Took progesterone for 1 year. Physical Findings: Nurse Summary: dense, nodes (nurse ms). US Breast Workup RT Technologist: Kristel Paula Right complete breast ultrasound includes all four quadrants, the retroareolar region and axilla. Finding demonstrates a 0.4 x 0.4 x 0.3cm lesion at 8 o'clock, probable mammographic correlate, cystic appearance and a 0.6 x 0.5 x 0.3cm possible cyst cluster at 7 o'clock. No abnormality seen in the superior aspect of the breast. These results were verbally communicated with the patient and result sheet given to the patient on 08/11/21. ASSESSMENT: Probably benign, BI-RAD 3 RECOMMENDATION: Follow-up diagnostic mammogram and ultrasound of the right breast in 6 months.
== END | disposition home or self-care (01) ==
LOC: RADUSWWP 08:42
PROVIDERS: ATTEND Family Medicine
DX: N60.01 Solitary cyst of right breast (principal); Z80.3 Family history of malignant neoplasm of breast; Z78.0 Asymptomatic menopausal state

== ENCOUNTER 2022-01-20 07:27 | Day surgery (SDC) | payer MEDICARE ==
[2022-01-19 08:42] VITALS: BMI 29.9
[~2022-01-20 07:27] MED LIST changes: +DEXAMETHASONE SOD PHOSPHATE 4 MG/ML 1 ML VIAL IV ONE; +MOXIFLOXACIN HCL 0.5% DROPS 3 ML BTL OP PRN; +ONDANSETRON 4 MG/2 ML VIAL IVP ONE; +TETRACAINE 0.5% OPHTH (PF) DROPS 4 ML BTL OP PRN; +TIMOLOL 0.5% OPHTH DROPS 5 ML BTL OP PRN
[2022-01-20] MEDS: CYCLOPENTOLATE 1% OPHTH SOLN 2 ML BTL OP PRN ×4 (07:52→08:12)
[2022-01-20] MEDS: PHENYLEPHRINE 2.5% OPHTH DRP 2ML OP PRN ×3 (07:58→08:12)
[2022-01-20 08:03] VITALS: TEMP 97.4
[2022-01-20] MEDS ORDERED: fentaNYL (PF) 50 MCG/ML 2 ML AMP ONE (08:14)
[2022-01-20] MEDS ORDERED: MIDAZOLAM 2 MG/2 ML VIAL ONE (08:14)
[2022-01-20 08:15] LABS: Glucose,Whole Blood 157 mg/dL (75-99)
[2022-01-20] MEDS ORDERED: EPINEPHrine (PF) 0.3 ML in BALANCED SALT IRRIG SOLN COMB2 500 ML IRRIGATION ONE (08:30)
[2022-01-20] MEDS ORDERED: BALANCED SALT IRRIG SOLN COMB2 15 ML IRRIG.SOLN IRRIGATION ONE (08:31)
[2022-01-20] MEDS ORDERED: LIDOCAINE 1% (PF) 10MG/ML VIAL MISCELLANE ONE (08:31)
[2022-01-20] MEDS ORDERED: HYALURONATE SODIUM INTRAOCULAR 1 EACH SYRINGE (12MG/ML) INTRAOCULA ONE (08:31)
--- NOTE | 2022-01-20 08:42 | P.OP ---
Date of Procedure: 01/20/22 Preoperative Diagnosis: NS Postoperative Diagnosis: same Procedure(s) Performed: PIOL< OD Implants: MX60E 19.50 Anesthesia: MAC Surgeon: Jesse Petit Pathology: none sent Condition: stable Disposition: same day Indications for Procedure: blurry vision Operative Findings: no complications
[2022-01-20 09:10] VITALS: BP 170/86; PULSE 61; RESP 16
--- NOTE | 2022-01-21 10:16 | OP ---
OPERATIVE REPORT DATE OF SERVICE: 01/20/2022 SURGEON: Dr. Jesse Petit. PREOPERATIVE DIAGNOSIS: Nuclear sclerosis. POSTOPERATIVE DIAGNOSIS: Nuclear sclerosis. OPERATION: Phacoemulsification of cataract and intraocular lens implant of the right OD eye. ESTIMATED BLOOD LOSS: Zero. SPECIMEN TAKEN: None. NARRATIVE: After obtaining the appropriate consent, the patient was brought to the Operating Room where the patient was placed under cardiac monitoring and prepped and draped in the usual sterile manner. At the 11 o'clock position a 15 degree super sharp blade was used to create a paracentesis followed by instillation of 1% Xylocaine MPF 50:50 mix with BSS into the anterior chamber. This was followed by Amvisc to stabilize the anterior chamber. At the 9 o'clock position a self-sealing corneal flap incision was created using 2.8 mm jason keratome. A cystotome was used to initiate a continuous tear capsulorrhexis which was completed with the Utrata forceps. A Binkhorst cannula was used to hydrodissect the lens nucleus followed by hydrodelineation. Phacoemulsification of the lens was performed utilizing phacochop in 17.94 seconds at 16% power. The remaining cortical material was removed using the irrigation aspiration mode followed by additional 1% Xylocaine MPF into the anterior chamber followed by viscoelastic to stabilize the capsular bag. A [employer] MX60E 19.5 diopter posterior chamber lens was placed into the capsular bag without difficulty. The remaining viscoelastic material was removed from the anterior chamber with the irrigation/aspiration. Balanced salt solution was used to normalize the intraocular pressure. The incision was checked for watertight integrity. The patient then received two drops of 0.5% timolol followed by two drops Vigamox, was lightly patched and shielded in the usual manner. There were no complications from the procedure. The patient tolerated the procedure well and was returned to recovery in good condition. MMODL / IJN: [id number] /
== END 2022-01-20 09:17 | disposition home or self-care (01) ==
LOC: OR 07:27
PROVIDERS: ATTEND Ophthalmology
DX: H25.11 Age-related nuclear cataract, right eye (principal)
CPT/HCPCS: 66982; C1780; J2250; J0171; J3010; J2001

== ENCOUNTER → 2022-02-11 | Outpatient (CLI) | payer MEDICARE ==
--- NOTE | 2022-02-17 13:41 | USB ---
Reason for Exam: Follow-up at short interval from prior study. Last screening mammogram was performed 6 month(s) ago. Patient History: Menarche at age 13. First Full-Term at age 26. Postmenopausal. Patient used Estrogen for 1 year. Patient used Progesterone for 1 year. Cyst Aspiration on the Right side. Cyst Aspiration on the Right side. Cyst Aspiration on the Right side. Cyst Aspiration on the Right side. Sister had breast cancer, age 50. Risk Values: Madison 5 year model risk: 3.4%. NCI Lifetime model risk: 9.7%. Prior Study Comparison: 02/04/2004 Bilateral Screening Mammogram, [facility]. 07/09/2009 Bilateral Screening Mammogram, [facility]. 07/21/2021 Bilateral Screening Mammogram, [facility]. Tissue Density: Right: The breast tissue is heterogeneously dense. This may lower the sensitivity of mammography. Findings: Analyzed By CAD. Mammogram 7:00 nodular density persists and is unchanged. No additional nodules or suspicious calcifications seen. Technique: Method: Targeted. Findings: RT 7:00 0.5 x 0.4 x 0.3cm anechoic, oval cyst seen. Overall Assessment: Benign, BI-RAD 2 Assessment: MG 3D diag mammo w/cad RT - Right: Incomplete: need additional imaging evaluation, BI-RAD 0. US breast limited RT - Right: Benign, BI-RAD 2. Management: Screening Mammogram of both breasts in 6 months. A clinical breast exam by your physician is recommended on an annual basis and results should be correlated with mammographic findings. Results were given to the patient verbally at the time of exam. Electronically signed and approved by: Hamilton Duong M.D. Radiologis
== END | disposition home or self-care (01) ==
LOC: RADMAMWWP 13:12
PROVIDERS: ATTEND Family Medicine
DX: R92.8 Other abnormal and inconclusive findings on diagnostic imaging of breast (principal); Z78.0 Asymptomatic menopausal state
CPT/HCPCS: 77065; 76642; G0279; 77061

== ENCOUNTER 2022-02-18 20:12 | Emergency (ER) | payer MEDICARE ==
[2022-02-18] MEDS ORDERED: NITROGLYCERIN SL TABS 0.4 MG TAB SUBLINGUAL STA (21:10)
[2022-02-18] MEDS ORDERED: ASPIRIN 81 MG PO STA (21:10)
--- NOTE | 2022-02-18 21:14 | ED ---
General Adult HPI - General Chief complaint: Chest Pain Stated complaint: Chest pain,Dizziness Time Seen by Provider: 02/18/22 20:58 Source: patient, family Mode of arrival: ambulatory Limitations: no limitations - History of Present Illness Initial comments: Dictation was produced using [employer] dictation software. please excuse any grammatical, word or spelling errors. Chief Complaint: 71-year-old female presents emergency Department with back pain History of Present Illness: Is 71-year-old feels presents to the emergency Department with back pain. Patient states her symptoms feel exactly like when she was diagnosed with myocardial infarction back in 2009. Patient states that her symptoms began in her lower back and now are in her upper back. States it is a dull ache non-radiating to her shoulders without extremities. She states she did feel little clammy with it. Been under a lot of stress recently due to her level once recent diagnosis of cancer. Patient is Xanax and feels a little more calm. States her symptoms are slightly improved since taking the Xanax. The ROS documented in this emergency department record has been reviewed and confirmed by me. Those systems with pertinent positive or negative responses have been documented in the HPI. All other systems are other negative and/or noncontributory. PHYSICAL EXAM: General Impression: Alert and oriented x3, not in acute distress HEENT: Normocephalic atraumatic, extra-ocular movements intact, pupils equal and reactive to light bilaterally, mucous membranes moist. Cardiovascular: Heart regular rate and rhythm Chest: Able to complete full sentences, no retractions, no tachypnea Abdomen: abdomen soft, non-tender, non-distended, no organomegaly Musculoskeletal: Pulses present and equal in all extremities, no peripheral edema Motor: no focal deficits noted Neurological: CN II-XII grossly intact, no focal motor or sensory deficits noted Skin: Intact with no visualized rashes Psych: Normal affect and mood ED course: 71-year-old well-appearing female presents to emergency department with upper back pain. Patient reports that her symptoms are very comparable to symptoms she experienced in 2009 which is diagnosed with myocardial infarctions. Vital signs upon arrival shows blood pressure 217/99, worse vital signs within acceptable limits. Patient given aspirin. Patient states she has chronic elevated blood pressure that is currently being managed by her primary care doctor. Laboratory evaluation obtained. CBC unremarkable. Coag panel is negative. Metabolic panel is negative. Troponin is normal. Chest x-ray is nonacute. Tessy acosta was observed in emergency department for 2 hours and 23 minutes. It is recommended patient to be admitted overnight for cardiac monitoring, seizure troponins a cardiology consultation due to multiple high risk features. Patient refuses and would prefer to be discharge. She believes that most of her symptoms are secondary to personal stress. Patient understands the risks of being discharged that her workup is not entirely complete in terms of ruling out impending major adverse cardiac event. Patient understands and would still prefer to be discharge. She is with the care of her [id number] who will bring her back the second she has any sort of recurrence of symptoms. Patient d oes have nitro's at home that she is advised to take should her symptoms return. Patient understands the plan and is satisfied with the disposition. Upon reevaluation at 10:40 PM patient states that her symptoms are significantly improved point where she is asymptomatic. EKG interpretation: Ventricular rate sinus rhythm, 65, CA interval 171, care is 80, QTc 440. No CA prolongation, no QTC prolongation, no ST or T-wave changes noted. EKG compared to 06/11/2019 showing no changes. Overall, this EKG is unremarkable - Related Data Home Medications Medication Instructions Recorded Confirmed Calcium Carbonate [Calcium] 600 mg PO HS 10/06/15 02/18/22 Carvedilol [Coreg] 12.5 mg PO BID 10/06/15 02/18/22 Ubidecarenone [Co Q-10] 200 mg PO DAILY 10/06/15 02/18/22 Ascorbic Acid [Vitamin C] 500 mg PO DAILY 04/22/17 02/18/22 Cholecalciferol [Vitamin D3 (25 2,000 unit PO HS 04/22/17 02/18/22 Mcg = 1000 Iu)] Losartan Potassium 100 mg PO DAILY 06/11/19 02/18/22 Simvastatin [Zocor] 80 mg PO HS 06/11/19 02/18/22 Aspirin [Adult Low Dose Aspirin EC] 81 mg PO DAILY 03/11/21 02/18/22 Vit C/E/Zn/Coppr/Lutein/Zeaxan 1 tab PO BID 01/05/22 02/18/22 [Preservision Areds 2 Softgel] ALPRAZolam [Xanax] 0.25 mg PO BID PRN 02/18/22 02/18/22 Ciprofloxacin HCl [Cipro] 500 mg PO Q12HR 02/18/22 02/18/22 Escitalopram [Lexapro] 5 mg PO DAILY 02/18/22 02/18/22 Fluconazole [Diflucan] 150 mg PO ONCE PRN 02/18/22 02/18/22 Previous Rx's Medication Instructions Recorded glipiZIDE [Glucotrol] 10 mg PO AC-BID #60 tablet 10/07/15 metFORMIN HCL [Glucophage] 850 mg PO BID #60 tab 10/07/15 Allergies Allergy/AdvReac Type Severity Reaction Status Date / Time No Known Allergies Allergy Verified 02/18/22 21:53 Review of Systems ROS Statement: Those systems with pertinent positive or pertinent negative responses have been documented in the HPI. ROS Other: All systems not noted in ROS Statement are negative. Past Medical History Past Medical History: Coronary Artery Disease (CAD), Diabetes Mellitus, Hyperlipidemia, Hypertension, Myocardial Infarction ([place]) Additional Past Medical History / Comment(s): [place] 2009 with ischemic ca rdiomyopathy. 2015 stent placed Last Myocardial Infarction Date:: 02/16/10 History of Any Multi-Drug Resistant Organisms: None Reported Past Surgical History: Hysterectomy Additional Past Surgical History / Comment(s): 10/06/15 PTCA with stent to LAD. 02/16/10 PTCA with stent to LAD, L carpal tunnel release. 2019 hysterectomy Past Anesthesia/Blood Transfusion Reactions: No Reported Reaction Date of Last Stent Placement:: 10/06/15 Past Psychological History: No Psychological Hx Reported Smoking Status: Former smoker Past Alcohol Use History: None Reported Past Drug Use History: None Reported - Past Family History Father Family Medical History: Coronary Artery Disease (CAD), Dementia, Diabetes Mellitus Additional Family Medical History / Comment(s): Father is . He had 4 vessel bypass. Mother Family Medical History: Rheumatoid Arthritis (RA) Additional Family Medical History / Comment(s): Mother is . She had polymyalgia and spinal stenosis. General Exam Limitations: no limitations Course Vital Signs 02/18/22 02/18/22 20:27 21:38 Temperature 98.2 F Pulse Rate 65 Respiratory 18 Rate Blood Pressure 217/99 189/113 O2 Sat by Pulse 98 Oximetry Medical Decision Making - Lab Data Result diagrams: 02/18/22 21:57 02/18/22 21:57 Lab Results 02/18/22 02/18/22 02/18/22 Range/Units 21:57 21:57 21:57 WBC 7.2 (3.8-10.6) k/uL RBC 4.19 (3.80-5.40) m/uL Hgb 12.6 (11.4-16.0) gm/dL Hct 37.1 (34.0-46.0) % MCV 88.5 (80.0-100.0) fL MCH 30.2 (25.0-35.0) pg MCHC 34.1 (31.0-37.0) g/dL RDW 12.7 (11.5-15.5) % Plt Count 233 (150-450) k/uL MPV 7.3 Neutrophils % 55 % Lymphocytes % 33 % Monocytes % 7 % Eosinophils % 3 % Basophils % 1 % Neutrophils # 3.9 (1.3-7.7) k/uL Lymphocytes # 2.4 (1.0-4.8) k/uL Monocytes # 0.5 (0-1.0) k/uL Eosinophils # 0.2 (0-0.7) k/uL Basophils # 0.1 (0-0.2) k/uL PT 11.2 (9.0-12.0) sec INR 1.0 (<1.2) APTT 23.3 (22.0-30.0) sec Sodium 137 (137-145) mmol/L Potassium 4.1 (3.5-5.1) mmol/L Chloride 106 (98-107) mmol/L Carbon Dioxide 24 (22-30) mmol/L Anion Gap 7 mmol/L BUN 18 H (7-17) mg/dL Creatinine 0.85 (0.52-1.04) mg/dL Est GFR (CKD-EPI)AfAm 81 (>60 ml/min/1.73 sqM) Est GFR (CKD-EPI)NonAf 70 (>60 ml/min/1.73 sqM) Glucose 103 H (74-99) mg/dL Calcium 9.5 (8.4-10.2) mg/dL Magnesium 1.8 (1.6-2.3) mg/dL Total Bilirubin 0.5 (0.2-1.3) mg/dL AST 20 (14-36) U/L ALT 16 (4-34) U/L Alkaline Phosphatase 92 (38-126) U/L Troponin I (0.000-0.034) ng/mL Total Protein 6.9 (6.3-8.2) g/dL Albumin 4.4 (3.5-5.0) g/dL Lipase 249 (23-300) U/L 02/18/22 Range/Units 21:57 WBC (3.8-10.6) k/uL RBC (3.80-5.40) m/uL Hgb (11.4-16.0) gm/dL Hct (34.0-46.0) % MCV (80.0-100.0) fL MCH (25.0-35.0) pg MCHC (31.0-37.0) g/dL RDW (11.5-15.5) % Plt Count (150-450) k/uL MPV Neutrophils % % Lymphocytes % % Monocytes % % Eosinophils % % Basophils % % Neutrophils # (1.3-7.7) k/uL Lymphocytes # (1.0-4.8) k/uL Monocytes # (0-1.0) k/uL Eosinophils # (0-0.7) k/uL Basophils # (0-0.2) k/uL PT (9.0-12.0) sec INR (<1.2) APTT (22.0-30.0) sec Sodium (137-145) mmol/L Potassium (3.5-5.1) mmol/L Chloride (98-107) mmol/L Carbon Dioxide (22-30) mmol/L Anion Gap mmol/L BUN (7-17) mg/dL Creatinine (0.52-1.04) mg/dL Est GFR (CKD-EPI)AfAm (>60 ml/min/1.73 sqM) Est GFR (CKD-EPI)NonAf (>60 ml/min/1.73 sqM) Glucose (74-99) mg/dL Calcium (8.4-10.2) mg/dL Magnesium (1.6-2.3) mg/dL Total Bilirubin (0.2-1.3) mg/dL AST (14-36) U/L ALT (4-34) U/L Alkaline Phosphatase (38-126) U/L Troponin I <0.012 (0.000-0.034) ng/mL Total Protein (6.3-8.2) g/dL Albumin (3.5-5.0) g/dL Lipase (23-300) U/L Disposition Clinical Impression: Chest pain Disposition: HOME SELF-CARE Condition: Fair Instructions (If sedation given, give patient instructions): Chest Pain (ED) Is patient prescribed a controlled substance at d/c from ED?: No Referrals: Catalina Kelley MD [Primary Care Provider] - 1-2 days Time of Disposition: 22:38
--- NOTE | 2022-02-18 21:34 | XR ---
EXAMINATION TYPE: XR chest 2V DATE OF EXAM: 02/18/2022 COMPARISON: 04/22/2017 HISTORY: Shortness of breath TECHNIQUE: Frontal and lateral views of the chest are obtained. FINDINGS: Scattered senescent parenchymal changes noted. Hyperinflation compatible with COPD. No evidence for infiltrate. No evidence for atelectasis. Heart size is stable. Mediastinal structures are stable and grossly unremarkable. No evidence for hilar prominence. Degenerative changes dorsal spine. IMPRESSION: 1. No evidence for acute pulmonary disease.
[2022-02-18 22:06] LABS: Basophils # (A) 0.1 k/uL (0-0.2); Basophils % (A) 1 %; Eosinophils # (A) 0.2 k/uL (0-0.7); Eosinophils % (A) 3 %; HCT 37.1 % (34.0-46.0); HGB 12.6 gm/dL (11.4-16.0); Lymphocytes # (A) 2.4 k/uL (1.0-4.8); Lymphocytes % (A) 33 %; MCH 30.2 pg (25.0-35.0); MCHC 34.1 g/dL (31.0-37.0); MCV 88.5 fL (80.0-100.0); Mean Platelet Volume 7.3; Monocytes # (A) 0.5 k/uL (0-1.0); Monocytes % (A) 7 %; Neutrophils # (A) 3.9 k/uL (1.3-7.7); Neutrophils % (A) 55 %; Platelet Count 233 k/uL (150-450); RBC 4.19 m/uL (3.80-5.40); RDW 12.7 % (11.5-15.5); WBC 7.2 k/uL (3.8-10.6)
[2022-02-18 22:16] LABS: Albumin 4.4 g/dL (3.5-5.0); Calcium 9.5 mg/dL (8.4-10.2); Magnesium 1.8 mg/dL (1.6-2.3); Potassium 4.1 mmol/L (3.5-5.1); Total Bilirubin 0.5 mg/dL (0.2-1.3); Total Protein 6.9 g/dL (6.3-8.2)
[2022-02-18 22:21] LABS: Partial Thromboplastin Time 23.3 sec (22.0-30.0); Prothrombin Time 11.2 sec (9.0-12.0)
[2022-02-18 22:53] VITALS: BP 163/80; PULSE 67; RESP 20; TEMP 98.5
== END 2022-02-18 22:45 | disposition home or self-care (01) ==
LOC: EC 20:12
DX: R07.89 Other chest pain (principal); I25.10 Atherosclerotic heart disease of native coronary artery without angina pectoris; E11.9 Type 2 diabetes mellitus without complications; E78.5 Hyperlipidemia, unspecified; I10 Essential (primary) hypertension; Z79.82 Long term (current) use of aspirin; Z87.891 Personal history of nicotine dependence
CPT/HCPCS: 36415; 71046; 80053; 83690; 83735; 84484; 85025; 85610; 85730; 93005

== ENCOUNTER → 2022-08-17 | Outpatient (CLI) | payer MEDICARE ==
--- NOTE | 2022-08-18 17:37 | MM ---
Reason for Exam: Screening (asymptomatic). Last mammogram was performed 1 year(s) and 1 month(s) ago. Patient History: Menarche at age 13. First Full-Term at age 26. Left ovary removed at age 71. Right ovary removed at age 71. Hysterectomy at age 71. Postmenopausal. Patient has history of breast feeding. Patient used Estrogen for 1 year. Patient used Progesterone for 1 year. Cyst Aspiration on the Right side. Cyst Aspiration on the Right side. Cyst Aspiration on the Right side. Cyst Aspiration on the Right side. Sister had breast cancer, age 50. Risk Values: Madison 5 year model risk: 3.4%. NCI Lifetime model risk: 9.7%. Prior Study Comparison: 07/09/2009 Bilateral Screening Mammogram, [facility]. 07/21/2021 Bilateral Screening Mammogram, [facility]. 02/11/2022 Right MG 3D diag mammo w/cad RT, [facility]. Tissue Density: There are scattered fibroglandular densities. Findings: Analyzed By CAD. Abdomen appears symmetrical and stable. Benign calcifications within the left breast. Mole markers are utilized on the left breast. No significant interval change is evident. No suspicious groups of microcalcifications, spiculated or lobular masses, architectural distortion or other secondary signs of malignancy are mammographically apparent. Overall Assessment: Benign, BI-RAD 2 Management: Screening Mammogram of both breasts in 1 year. A negative mammogram report should not preclude additional follow up of suspicious palpable abnormalities. Patient should continue monthly self breast exam. A clinical breast exam by your physician is recommended on an annual basis and results should be correlated with mammographic findings. Electronically signed and approved by: Saurabh Snowden D.O. Radiologis
== END | disposition home or self-care (01) ==
LOC: RADMAMWWP 11:09
PROVIDERS: ATTEND Family Medicine
DX: Z12.31 Encounter for screening mammogram for malignant neoplasm of breast (principal); Z78.0 Asymptomatic menopausal state; Z80.3 Family history of malignant neoplasm of breast; Z98.890 Other specified postprocedural states
CPT/HCPCS: 77063; 77067

== ENCOUNTER 2023-01-24 11:23 | Observation (INO) | payer MEDICARE ==
--- NOTE | 2023-01-24 12:43 | XR ---
EXAMINATION TYPE: XR chest 2V DATE OF EXAM: 01/24/2023 COMPARISON: 09/26/2022 HISTORY: Shortness of breath TECHNIQUE: Frontal and lateral views of the chest are obtained. FINDINGS: Scattered senescent parenchymal changes noted. Hyperinflation compatible with COPD. No evidence for infiltrate. No evidence for atelectasis. Heart size is stable. Mediastinal structures are stable and grossly unremarkable. No evidence for hilar prominence. Degenerative changes dorsal spine. IMPRESSION: 1. No evidence for acute pulmonary disease.
[2023-01-24 13:01] LABS: Basophils % (A) 0 %; Eosinophils # (A) 0.1 k/uL (0-0.7); Eosinophils % (A) 1 %; HCT 35.6 % (34.0-46.0); HGB 11.7 gm/dL (11.4-16.0); Lymphocytes # (A) 1.4 k/uL (1.0-4.8); Lymphocytes % (A) 23 %; MCH 27.4 pg (25.0-35.0); MCHC 32.9 g/dL (31.0-37.0); Mean Platelet Volume 8.1; Monocytes # (A) 0.3 k/uL (0-1.0); Monocytes % (A) 5 %; Neutrophils # (A) 4.1 k/uL (1.3-7.7); Neutrophils % (A) 69 %; Platelet Count 194 k/uL (150-450); RBC 4.28 m/uL (3.80-5.40); RDW 14.1 % (11.5-15.5)
[2023-01-24 13:06] LABS: MCV 83.2 fL (80.0-100.0)
[2023-01-24] MEDS ORDERED: MORPHINE SULFATE 4 MG/ML SYRINGE IVP STA (13:06)
[2023-01-24 13:13] LABS: Prothrombin Time 10.2 sec (9.0-12.0)
[2023-01-24 13:20] LABS: ALT 21 U/L (4-34); AST 22 U/L (14-36); African American GFR (CKD) 85 (>60 ml/min/1.73 sqM); Albumin 4.2 g/dL (3.5-5.0); Alkaline Phosphatase 120 U/L (38-126); Anion Gap 9 mmol/L; Blood Urea Nitrogen 11 mg/dL (7-17); Calcium 9.1 mg/dL (8.4-10.2); Carbon Dioxide 24 mmol/L (22-30); Chloride 109 mmol/L (98-107); Glucose 171 mg/dL (74-99); Lipase 173 U/L (23-300); Magnesium 1.9 mg/dL (1.6-2.3); Non-African American GFR(CKD) 74 (>60 ml/min/1.73 sqM); Potassium 4.2 mmol/L (3.5-5.1); Sodium 142 mmol/L (137-145); Total Bilirubin 0.4 mg/dL (0.2-1.3); Total Protein 6.8 g/dL (6.3-8.2)
[2023-01-24] MEDS ORDERED: NITROGLYCERIN OINT 1 INCH/GM PACKET TOPICAL STA (15:37)
[2023-01-24] MEDS ORDERED: ASPIRIN 81 MG PO STA (15:37)
[2023-01-24] MEDS ORDERED: NALOXONE 0.4 MG/ML 1 ML VIAL IV PRN (15:38)
--- NOTE | 2023-01-24 15:38 | ED ---
Chest Pain HPI - General Chief Complaint: Chest Pain Stated Complaint: back pain Source: patient Mode of arrival: ambulatory Limitations: no limitations - History of Present Illness Initial Comments: 72-year-old female past history of coronary artery disease, diabetes, hypertension who presents to the emergency department reporting chest pain. States the pain started earlier today while at rest. Describes it as a substernal pain with radiation to her intrascapular region. States that movement and breathing the pain worse. She took 2 nitro at home without any improvement in her pain. Denies fevers, chills or cough. No history of DVT or PE. No calf pain or swelling. No ripping or tearing sensation to her back. Last heart cath was in September of this year. She has 3 stents tolerable. Denies any numbness, tingling or weakness in her extremities. Patient is supposed to take Plavix daily however reports that she ran out of this medication 2 weeks ago. No other alleviating, precipitating or modifying factors - Related Data Home Medications Medication Instructions Recorded Confirmed Calcium Carbonate [Calcium] 600 mg PO HS 10/06/15 01/24/23 Ubidecarenone [Co Q-10] 200 mg PO DAILY 10/06/15 01/24/23 Ascorbic Acid [Vitamin C] 500 mg PO DAILY 04/22/17 01/24/23 Losartan Potassium 100 mg PO DAILY 06/11/19 01/24/23 Vit C/E/Zn/Coppr/Lutein/Zeaxan 1 tab PO BID 01/05/22 01/24/23 [Preservision Areds 2 Softgel] ALPRAZolam [Xanax] 0.25 mg PO BID PRN 02/18/22 01/24/23 Escitalopram [Lexapro] 5 mg PO DAILY 02/18/22 01/24/23 Cholecalciferol [Vitamin D3 (25 50 mcg PO DAILY 09/25/22 01/24/23 Mcg = 1000 Iu)] Atorvastatin [Lipitor] 80 mg PO DAILY 01/24/23 01/24/23 Clopidogrel [Plavix] 75 mg PO HS 01/24/23 01/24/23 Nitroglycerin Sl Tabs [Nitrostat] 0.4 mg SL Q5M PRN 01/24/23 01/24/23 Omeprazole 20 mg PO DAILY 01/24/23 01/24/23 Previous Rx's Medication Instructions Recorded glipiZIDE [Glucotrol] 10 mg PO AC-BID #60 tablet 10/07/15 metFORMIN HCL [Glucophage] 850 mg PO BID #60 tab 10/07/15 Apixaban [Eliquis] 5 mg PO BID #180 tab 09/28/22 Metoprolol Succinate (ER) [Toprol 100 mg PO DAILY #90 tab 09/28/22 XL] Spironolactone [Aldactone] 25 mg PO DAILY #90 tab 09/28/22 Allergies Allergy/AdvReac Type Severity Reaction Status Date / Time No Known Allergies Allergy Verified 01/24/23 13:37 Review of Systems ROS Statement: Those systems with pertinent positive or pertinent negative responses have been documented in the HPI. ROS Other: All systems not noted in ROS Statement are negative. Past Medical History Past Medical History: Coronary Artery Disease (CAD), Diabetes Mellitus, Hyperlipidemia, Hypertension, Myocardial Infarction ([place]), Osteoarthritis (OA) Additional Past Medical History / Comment(s): [place] 2009 with ischemic cardiomyopathy. 2015 stent placed Last Myocardial Infarction Date:: 02/16/10 History of Any Multi-Drug Resistant Organisms: None Reported Past Surgical History: Heart Catheterization With Stent, Hysterectomy Additional Past Surgical History / Comment(s): 10/06/15 PTCA with stent to LAD. 02/16/10 PTCA with stent to LAD, L carpal tunnel release. 2019 hysterectomy Past Anesthesia/Blood Transfusion Reactions: No Reported Reaction Date of Last Stent Placement:: 10/06/15 Past Psychological History: No Psychological Hx Reported Smoking Status: Former smoker Past Alcohol Use History: None Reported Past Drug Use History: None Reported - Past Family History Father Family Medical History: Coronary Artery Disease (CAD), Dementia, Diabetes Mellitus Additional Family Medical History / Comment(s): Father is . He had 4 vessel bypass. Mother Family Medical History: Rheumatoid Arthritis (RA) Additional Family Medical History / Comment(s): Mother is . She had polymyalgia and spinal stenosis. General Exam Limitations: no limitations Course Vital Signs 01/24/23 01/24/23 01/24/23 11:33 14:30 16:12 Temperature 98 F Pulse Rate 84 70 70 Respiratory 20 16 18 Rate Blood Pressure 172/90 175/108 180/98 O2 Sat by Pulse 99 97 97 Oximetry Chest Pain MDM - MDM Was pt. sent in by a medical professional or institution (Dr., PA, [facility], urgent care, hospital, or jail...) When possible be specific @ -[No] Did you speak to anyone other than the patient for history (EMS, parent, family, police, friend...)? What history was obtained from this source @ -[No] Did you review nursing and triage notes (agree or disagree)? Why? @ -[I reviewed and agree with nursing and triage notes] Were old charts reviewed (outside hosp., previous admission, EMS record, old EKG, old radiological studies, urgent care reports/EKG's, jail records)? Report findings @ -[No old charts were reviewed] Differential Diagnosis (chest pain, altered mental status, abdominal pain women, abdominal pain men, vaginal bleeding, weakness, fever, dyspnea, syncope, headache, dizziness, GI bleed, back pain, seizure, CVA, palpatations, mental health, musculoskeletal)? @ -[not applicable] EKG interpreted by me (3pts min.). @ -Yes and demonstrates sinus rhythm with a rate of 80. GA interval 177. QRS 86. QTC of 423. No acute ST segment elevations or depressions X-rays interpreted by me (1pt min.). @ -[None done] CT interpreted by me (1pt min.). @ -[None done] U/S interpreted by me (1pt. min.). @ -[None done] What testing was considered but not performed or refused? (CT, X-rays, U/S, labs)? Why? @ -[None] What meds were considered but not given or refused? Why? @ -[None] Did you discuss the management of the patient with other professionals (professionals i.e. JAROD Flores, [facility] [facility], lab, RT, psych nurse, social media strategist, stock taker, teacher, radio officer, casework supervisor)? Give summary @ -[No] Was smoking cessation discussed for >3mins.? @ -[No] Was critical care preformed (if so, how long)? @ -[No] Were there social determinants of health that impacted care today? How? (Homeles sness, low income, unemployed, alcoholism, drug addiction, transportation, low edu. Level, literacy, decrease access to med. care, [facility], rehab)? @ -[No] Was there de-escalation of care discussed even if they declined (Discuss DNR or withdrawal of care, Hospice)? DNR status @ -[No] What co-morbidities impacted this encounter? (DM, HTN, Smoking, COPD, CAD, Cancer, CVA, ARF, Chemo, Hep., AIDS, mental health diagnosis, sleep apnea, morbid obesity)? @ -[None] Was patient admitted / discharged? Hospital course, mention meds given and route, prescriptions, significant lab abnormalities, going to OR and other pertinent info. @ -Upon arrival patient is placed into room 25. A thorough history and physical exam was performed. He should placed on continuous pulse ox and cardiac monitoring. 12-lead EKG is obtained. Laboratory studies were conducted. D-dimer is 0.62 which is age-adjusted appropriately. Troponin is negative. Chest x-ray demonstrates no acute process. I did recommend admission for which the patient was agreeable. Spoke with Dr. Marcos. Patient did receive morphine, nitro for her chest pain. Plavix will be resumed. Cardiology placed on consult. Patient awaiting a bed on the floor in stable condition Undiagnosed new problem with uncertain prognosis? @ -[No] Drug Therapy requiring intensive monitoring for toxicity (Heparin, Nitro, Insulin, Cardizem)? @ -[No] Were any procedures done? @ -[No] Diagnosis/symptom? @ -[default] Acute, or Chronic, or Acute on Chronic? @ -[default] Uncomplicated (without systemic symptoms) or Complicated (systemic symptoms)? @ -[default] Side effects of treatment? @ -[No] Exacerbation, Progression, or Severe Exacerbation? @ -[No] Poses a threat to life or bodily function? How? (Chest pain, [place], [place], pneumonia, PE, COPD, DKA, ARF, appy, cholecystitis, CVA, Diverticulitis, Homicidal, Suicidal, threat to staff... and all critical care pts) @ -[No] Disposition Clinical Impression: Chest pain Disposition: ADMITTED IP TO THIS [facility] Condition: Stable Is patient prescribed a controlled substance at d/c from ED?: No Time of Disposition: 15:37 Decision to Admit Reason: Admit from EC Decision Date: 01/24/23 Decision Time: 15:37
[2023-01-24] MEDS ORDERED: ALPRAZolam 0.25 MG TAB PO PRN (15:40)
[2023-01-24] MEDS: APIXABAN 5 MG TAB PO SCH (20:00)
[2023-01-24 20:05] LABS: Glucose,Whole Blood 199 mg/dL (70-110)
[2023-01-24] MEDS ORDERED: CLOPIDOGREL 75 MG TAB PO SCH (21:00)
[2023-01-24] MEDS ORDERED: CALCIUM CARBONATE 500 MG CHEWABLE PO SCH (21:00)
[2023-01-24] MEDS ORDERED: MORPHINE SULFATE 4 MG/ML SYRINGE IVP PRN (21:24)
[2023-01-25 04:50] LABS: Basophils % (A) 0 %; Eosinophils # (A) 0.1 k/uL (0-0.7); Eosinophils % (A) 2 %; HCT 32.4 % (34.0-46.0); HGB 10.5 gm/dL (11.4-16.0); Lymphocytes % (A) 20 %; MCH 27.4 pg (25.0-35.0); MCHC 32.5 g/dL (31.0-37.0); MCV 84.4 fL (80.0-100.0); Mean Platelet Volume 7.9; Monocytes # (A) 0.3 k/uL (0-1.0); Monocytes % (A) 6 %; Neutrophils # (A) 3.7 k/uL (1.3-7.7); Neutrophils % (A) 71 %; Platelet Count 181 k/uL (150-450); RBC 3.84 m/uL (3.80-5.40); WBC 5.2 k/uL (3.8-10.6)
[2023-01-25 05:09] LABS: African American GFR (CKD) 89 (>60 ml/min/1.73 sqM); Anion Gap 8 mmol/L; Blood Urea Nitrogen 13 mg/dL (7-17); Carbon Dioxide 22 mmol/L (22-30); Chloride 108 mmol/L (98-107); Glucose 176 mg/dL (74-99); Non-African American GFR(CKD) 77 (>60 ml/min/1.73 sqM); Potassium 4.1 mmol/L (3.5-5.1); Sodium 138 mmol/L (137-145)
[2023-01-25] MEDS ORDERED: PANTOPRAZOLE 40 MG TABLET PO SCH (07:30)
[2023-01-25] MEDS ORDERED: AMINOPHYLLINE 500 MG/20 ML VIAL IV PRN (08:53)
[2023-01-25] MEDS ORDERED: CAFFEINE CITRATE 60 MG/3 ML VIAL IV PRN (08:53)
[2023-01-25] MEDS ORDERED: REGADENOSON 0.4 MG/5 ML SYRINGE IV PRN (08:53)
[2023-01-25] MEDS ORDERED: METOPROLOL SUCCINATE (ER) 100 MG TAB.ER.24H PO SCH (09:00)
[2023-01-25] MEDS ORDERED: LOSARTAN 50 MG TAB PO SCH (09:00)
[2023-01-25] MEDS ORDERED: ESCITALOPRAM 5 MG TAB PO SCH (09:00)
[2023-01-25] MEDS ORDERED: ASCORBIC ACID 500 MG TAB PO SCH (09:00)
[2023-01-25] MEDS ORDERED: ATORVASTATIN 80 MG TAB PO SCH (09:00)
[2023-01-25] MEDS ORDERED: SPIRONOLACTONE 25 MG TAB PO SCH (09:00)
[2023-01-25] MEDS ORDERED: CHOLECALCIFEROL 25 MCG (1000 IU) TABLET PO SCH (09:00)
[2023-01-25] MEDS: APIXABAN 5 MG TAB PO SCH (09:17)
[2023-01-25 09:24] VITALS: PULSE 76
--- NOTE | 2023-01-25 10:12 | CT ---
EXAMINATION TYPE: CT angio chest DATE OF EXAM: 01/25/2023 COMPARISON: 11/28/2012 HISTORY: 61-year-old female elevated D-Dimer, Chest pain TECHNIQUE: Contiguous axial scanning of the chest performed with IV Contrast, patient injected with 1 00 mL of Isovue 300. Coronal/sagittal MIP reconstructions performed. CT DLP: 323.5 mGycm Automated exposure control for dose reduction was used. FINDINGS: Heart is normal size without pericardial effusion. No flattening of the interventricular septum reflu x of contrast into the hepatic veins. LAD and circumflex coronary artery calcifications are present. Aorta normal caliber with mild atherosclerotic arch calcifications and conventional arch vessel branc edgardo anatomy. Prominent subcarinal lymph node at 1.1 cm, previously enlarged at 1.9 cm. Mildly enlarged right hilar lymph node at 1.6 cm, relatively similar. There is satisfactory opacification of the pulmonary arterial system without evidence for pulmonary e mbolus. No evidence for pulmonary embolus. Moderate centrilobular emphysema. Right apical pleural-parenchymal scarring. 4 mm anterior left midlung pulmonary nodule, axial image C1 not seen previously. Strandy atelectasis inferior lingula and posterior lung bases. New 7 mm irregular nodule right upper lobe on axial image 47. No consolidation or pleural effusion. Visualized upper abdomen shows moderate atherosclerotic plaque within the infrarenal abdominal aorta. Possible extrarenal pelvis right kidney partially seen. Bones: Mild degenerative disc disease mid thoracic spine. Mild dextroconvex curvature thoracic spine. IMPRESSION: 1. NO EVIDENCE FOR PULMONARY EMBOLUS. 2. COPD WITH MODERATE EMPHYSEMA. 3. A COUPLE NEW PULMONARY NODULES IN THE UPPER LOBES MEASURING UP TO 7 MM ON THE RIGHT. RECOMMEND THR EE-MONTH FOLLOW-UP CT CHEST. EARLY LUNG CANCER NOT EXCLUDED AT THIS TIME. 4. CAD WITH PROMINENT LAD AND CIRCUMFLEX CORONARY ARTERY CALCIFICATIONS.
[2023-01-25] MEDS ORDERED: DEXTROSE 50% SYRINGE 50 ML IVP PRN ×2 (10:14)
--- NOTE | 2023-01-25 10:32 | P.CRDCN ---
History of Present Illness Consult date: 01/25/23 Consult reason: chest pain History of present illness: History of present illness: This is a 72-year-old female patient of Dr. Soto with past medical history of coronary artery disease, atrial fibrillation, hypertension, dyslipidemia, diabetes, remote history of tobacco use. Patient was recently hospitalized in September [address] elevated myocardial infarction and underwent cardiac catheterization with Dr. Slaughter which revealed acute total occlusion of the proximal left circumflex, patent stent in the proximal LAD, m ild disease involving the mid LAD, elevated left-sided filling pressures. Patient underwent stenting of the left circumflex. Echocardiogram at that time revealed EF of 50-55% with basal inferior hypokinesis and moderate mitral regurgitation. Patient also developed A. fib with RVR during the hospi talization. Patient has had follow-up in the office most recently on December 20. Patient presented to the hospital due to sharp pain in the mid back that went to her chest. No shortness of breath, no cough, no wheezing no edema. Pain is worse when she takes a deep breath. She has been very active physically and has not been experiencing the pain during activity. She denies any blood in her stools or urine. No lightheadedness and dizziness and no syncopal episodes. Patient is seen today in the emergency center waiting for a bed on the observation unit. Blood pressure 182/90. Telemetry is sinus rhythm. EKG sinus rhythm with occasional PACs Chest x-ray: No acute pulmonary process CT angiogram of the chest revealed no evidence of pulmonary embolus. COPD with moderate emphysema. New pulmonary nodules in the upper lobes measuring up to 7 mm on the right. Recommend 3 month follow-up. CAD with prominent LAD and circumflex coronary artery calcifications. WBC 5.2, hemoglobin 10.5, platelet count 181. D-dimer 0.62. Sodium 138, potassium 4.1, chloride 108, CO2 22, BUN 13 and creatinine 0.78. Blood sugar 176. Troponin negative 3. Home cardiac medications: Eliquis 5 mg twice daily, Lipitor 80 mg daily, Plavix 75 mg daily, losartan 100 mg daily, Toprol-XL 100 mg daily, Nitrostat as needed, Aldactone 5 mg daily. Review Of Systems: At the time of my evaluation: Constitutional: No fever, no chills. No weakness, fatigue or lethargy. EENT: No headache. No dizziness. Lungs: No shortness of breath, cough, no sputum production. No wheezing. Cardiovascular: No chest pain, no lower extremity edema. No palpitations. No paroxysmal nocturnal dyspnea. No orthopnea. No lightheadedness or dizziness. No syncopal episodes. Abdominal: No abdominal pain. No nausea, vomiting. No diarrhea. No constipation. No bloody or tarry stools. Genitourinary: No dysuria.. No urinary retention. Musculoskeletal: No myalgias. No muscle weakness, no frequent falls. No back pain. No neck pain. Integumentary: No wounds. No rash. No unusual bruising. Neurologic: No aphasia. No facial droop. No change in mentation. No head injury. No headache. Physical examination: Gen: This is a 72-year-old female. She is resting comfortably on the ER stretcher and appears to be in no acute distress VS: reviewed HEENT: Head is atraumatic, normocephalic. Pupils equal, round. Sclerae is anicteric. NECK: Supple. No JVD. LUNGS: Clear to auscultation. No wheezes or rhonchi. No intercostal retractions. HEART: Regular rate and rhythm. 2/6 systolic ejection murmur at the base. ABDOMEN: Soft No tenderness. EXTREMITIES: No pedal edema. No calf tenderness. NEUROLOGICAL: Patient is awake, alert and oriented x3. Assessment: Chest pain/back pain, acute coronary syndrome ruled out History of coronary artery disease with previous ST elevated AR and stents Paroxysmal atrial fibrillation Hypertension Dyslipidemia Diabetes Remote history of tobacco use Plan: Resume patient's home cardiac medications Obtain Lexiscan stress test If Lexiscan stress test is within normal limits, patient is cleared for discharge from cardiology. Thank you kindly for this consultation. Nurse practitioner note has been reviewed, I agree with documented findings and plan of care. Patient was seen and examined. Past Medical History Past Medical History: Coronary Artery Disease (CAD), Diabetes Mellitus, Hyperlipidemia, Hypertension, Myocardial Infarction ([place]), Osteoarthritis (OA) Additional Past Medical History / Comment(s): [place] 2009 with ischemic cardiomyopathy. 2016 stent placed Last Myocardial Infarction Date:: 02/16/10 History of Any Multi-Drug Resistant Organisms: None Reported Past Surgical History: Heart Catheterization With Stent, Hysterectomy Additional Past Surgical History / Comment(s): 10/06/15 PTCA with stent to LAD. 02/16/10 PTCA with stent to LAD, L carpal tunnel release. 2019 hysterectomy Past Anesthesia/Blood Transfusion Reactions: No Reported Reaction Date of Last Stent Placement:: 10/06/15 Past Psychological History: No Psychological Hx Reported Smoking Status: Former smoker Past Alcohol Use History: None Reported Past Drug Use History: None Reported - Past Family History Father Family Medical History: Coronary Artery Disease (CAD), Dementia, Diabetes Mellitus Additional Family Medical History / Comment(s): Father is . He had 4 vessel bypass. Mother Family Medical History: Rheumatoid Arthritis (RA) Additional Family Medical History / Comment(s): Mother is . She had polymyalgia and spinal stenosis. Medications and Allergies Home Medications Medication Instructions Recorded Confirmed Type Calcium Carbonate [Calcium] 600 mg PO HS 10/06/15 01/24/23 History Ubidecarenone [Co Q-10] 200 mg PO DAILY 10/06/15 01/24/23 History glipiZIDE [Glucotrol] 10 mg PO AC-BID #60 tablet 10/07/15 01/24/23 Rx metFORMIN HCL [Glucophage] 850 mg PO BID #60 tab 10/07/15 01/24/23 Rx Ascorbic Acid [Vitamin C] 500 mg PO DAILY 04/22/17 01/24/23 History Losartan Potassium 100 mg PO DAILY 06/11/19 01/24/23 History Vit C/E/Zn/Coppr/Lutein/Zeaxan 1 tab PO BID 01/05/22 01/24/23 History [Preservision Areds 2 Softgel] ALPRAZolam [Xanax] 0.25 mg PO BID PRN 02/18/22 01/24/23 History Escitalopram [Lexapro] 5 mg PO DAILY 02/18/22 01/24/23 History Cholecalciferol [Vitamin D3 (25 50 mcg PO DAILY 09/25/22 01/24/23 History Mcg = 1000 Iu)] Apixaban [Eliquis] 5 mg PO BID #180 tab 09/28/22 01/24/23 Rx Metoprolol Succinate (ER) [Toprol 100 mg PO DAILY #90 tab 09/28/22 01/24/23 Rx XL] Spironolactone [Aldactone] 25 mg PO DAILY #90 tab 09/28/22 01/24/23 Rx Atorvastatin [Lipitor] 80 mg PO DAILY 01/24/23 01/24/23 History Clopidogrel [Plavix] 75 mg PO HS 01/24/23 01/24/23 History Nitroglycerin Sl Tabs [Nitrostat] 0.4 mg SL Q5M PRN 01/24/23 01/24/23 History Omeprazole 20 mg PO DAILY 01/24/23 01/24/23 History Allergies Allergy/AdvReac Type Severity Reaction Status Date / Time No Known Allergies Allergy Verified 01/24/23 13:37 Physical Exam Vitals: Vital Signs Temp Pulse Resp BP Pulse Ox 01/25/23 06:02 83 16 160/86 97 01/25/23 00:51 71 18 130/65 01/24/23 23:05 66 18 160/78 01/24/23 16:12 70 18 180/98 97 01/24/23 14:30 70 16 175/108 97 01/24/23 11:33 98 F 84 20 172/90 99 Results 01/25/23 04:00 01/25/23 04:00 Cardiac Enzymes 01/24/23 01/24/23 01/24/23 Range/Units 12:39 12:39 17:29 AST 22 (14-36) U/L Troponin I <0.012 0.015 (0.000-0.034) ng/mL 01/24/23 Range/Units 20:59 AST (14-36) U/L Troponin I 0.013 (0.000-0.034) ng/mL Coagulation 01/24/23 Range/Units 12:39 PT 10.2 (9.0-12.0) sec APTT 22.0 (22.0-30.0) sec CBC 01/24/23 01/25/23 Range/Units 12:39 04:00 WBC 6.0 5.2 (3.8-10.6) k/uL RBC 4.28 3.84 (3.80-5.40) m/uL Hgb 11.7 10.5 L (11.4-16.0) gm/dL Hct 35.6 32.4 L (34.0-46.0) % Plt Count 194 181 (150-450) k/uL Comprehensive Metabolic Panel 01/24/23 01/25/23 Range/Units 12:39 04:00 Sodium 142 138 (137-145) mmol/L Potassium 4.2 4.1 (3.5-5.1) mmol/L Chloride 109 H 108 H (98-107) mmol/L Carbon Dioxide 24 22 (22-30) mmol/L BUN 11 13 (7-17) mg/dL Creatinine 0.81 0.78 (0.52-1.04) mg/dL Glucose 171 H 176 H (74-99) mg/dL Calcium 9.1 9.0 (8.4-10.2) mg/dL AST 22 (14-36) U/L ALT 21 (4-34) U/L Alkaline Phosphatase 120 (38-126) U/L Total Protein 6.8 (6.3-8.2) g/dL Albumin 4.2 (3.5-5.0) g/dL Current Medications Generic Name Dose Route Start Last Admin Trade Name Freq PRN Reason Stop Dose Admin Alprazolam 0.25 mg 01/24/23 15:40 Alprazolam 0.25 Mg Tab PO BID PRN Anxiety Apixaban 5 mg 01/24/23 21:00 01/24/23 20:00 Apixaban 5 Mg Tab PO 5 mg BID [facility] Administration Protocol Ascorbic Acid 500 mg 01/25/23 09:00 Ascorbic Acid 500 Mg Tab PO DAILY [facility] Atorvastatin Calcium 80 mg 01/25/23 09:00 Atorvastatin 80 Mg Tab PO DAILY [facility] Calcium Carbonate/Glycine 500 mg 01/24/23 21:00 01/24/23 20:01 Calcium Carbonate 500 Mg Chewable PO 500 mg HS KACIE Administration Cholecalciferol 50 mcg 01/25/23 09:00 Cholecalciferol 25 Mcg (1000 Iu) Tablet PO DAILY [facility] Clopidogrel Bisulfate 75 mg 01/24/23 21:00 01/24/23 20:01 Clopidogrel 75 Mg Tab PO 75 mg HS [facility] Administration Escitalopram Oxalate 5 mg 01/25/23 09:00 Escitalopram 5 Mg Tab PO DAILY [facility] Losartan Potassium 100 mg 01/25/23 09:00 Losartan 50 Mg Tab PO DAILY [facility] Metoprolol Succinate 100 mg 01/25/23 09:00 Metoprolol Succinate (Er) 100 Mg Tab.Er.24h PO DAILY [facility] Morphine Sulfate 4 mg 01/24/23 21:24 01/24/23 21:34 Morphine Sulfate 4 Mg/Ml Syringe IVP 4 mg Q4HR PRN Administration Pain Naloxone HCl 0.2 mg 01/24/23 15:38 Naloxone 0.4 Mg/Ml 1 Ml Vial IV Q2M PRN Opioid Reversal Pantoprazole Sodium 40 mg 01/25/23 07:30 Pantoprazole 40 Mg Tablet PO DAILY@0730 [facility] Spironolactone 25 mg 01/25/23 09:00 Spironolactone 25 Mg Tab PO DAILY [facility] 01/25/23 04:00 01/25/23 04:00
--- NOTE | 2023-01-25 12:51 | CA ---
Lexiscan Nuclear Stress Test Report Name: Greer Hammonds Exam Date: 01/25/2023 11:35 Exam Location: [facility] Ht (in): 65 Wt (lb): 180 BSA: 1.89 Ordering Phys: Cristal Swain Referring Phys: KEM/JSOS,, Technologist: ERIN,, Age: 72 Gender: F : 1950 Procedure CPT: Indications: Reflex order-Stress test ICD-10 Codes: Patient History: Chest pain Medications: Meds past 24 hrs: Pretest Chest Pain: STRESS TEST Lexiscan Protocol Exercise Duration (min:sec): 02:[address] Depressions (mm): Angina Score: Parisi Score: Resting HR (bpm): 78 Peak HR (bpm): 112 Resting BP (mmHg): 161 / 75 Peak BP (mmHg): 198 / 99 MPHR: 149 Target HR: 127 % MPHR: 75 METS: 1.0 Total Dose: Peak Dose: Atropine: Double Product: 65358 BP Response: Stress Termination: Infusion complete Stress Symptoms: Nausea Stress Summary: ECG ANALYSIS Resting ECG: Sinus rhythm. Normal conduction. No arrhythmias. Normal repolarization. Stress ECG: No ECG changes from baseline with Lexiscan infusion. CONCLUSIONS No ECG evidence of ischemia with Lexiscan infusion. Nuclear test results to follow. Dr. Cordelia Soto MD (Electronically Signed) Final Date: 25 January 2023 12:50
[2023-01-25 13:12] LABS: Glucose,Whole Blood 218 mg/dL (70-110)
[2023-01-25] MEDS: INSULIN ASPART (NovoLOG) 100 UNIT/ML VIAL SQ SCH ×2 (13:28→17:07)
[2023-01-25 13:58] VITALS: BP 158/83; RESP 16; TEMP 98.2
--- NOTE | 2023-01-25 16:03 | NM ---
EXAMINATION TYPE: NM stress lexiscan cardiolite DATE OF EXAM: 01/25/2023 COMPARISON: NONE CLINICAL INDICATION: Female, 72 years old with history of CP; TECHNIQUE: After the intravenous administration of 9.3 mCi Tc 99m Sestamibi - Cardiolite resting SPE CT images acquired 65 minutes post injection. The patient received 0.4mg Lexiscan, 1140 mCi Tc 99m Sestamibi - Stress images obtained [address] injection FINDINGS: Review of stress and rest SPECT images demonstrates fixed perfusion defect along the inferior wall. N o discrete reversibility is seen. Gated analysis shows slight global hypokinesis with an estimated le ft ventricular ejection fraction of 46 %. TID is mildly elevated at 1.23. IMPRESSION: 1. Increased TID at 1.23. This can be seen with a positive exam in the setting of multivessel/global inducible ischemia. Further clinical correlation/workup recommended. 2. Large area of fixed perfusion defect along the inferior wall could relate to prior infarct versus diaphragmatic attenuation artifact. 3. Estimated LVEF mildly diminished at 46%
--- NOTE | 2023-01-25 16:27 | P.HPIM ---
History of Present Illness H&P Date: 01/25/23 Greer Hammonds, is a 72-year-old female who presented to [facility] emergency room with a chief complaint of chest pain. She was evaluated in the emergency room vital examination on presentation revealed a temperature of 98 pulse 84 respiration 20 blood pressure 172/90 pulse ox 99% on room air Laboratory data revealed a white blood count of 6.0 hemoglobin 11.6 platelet count 194 d-dimer 0.62 sodium 142 potassium 4.2 chloride 109 CO2 24 BUN 11 creatinine 0.81 troponin level 0.013 BNP 739 Testing in the emergency room revealed chest x-ray done in the emergency room revealed no evidence for acute pulmonary disease, EKG done in the emergency room revealed sinus rhythm with occasional supraventricular premature complexes Patient was admitted to medical floor for further evaluation and treatment Past medical history is significant for history of hypertension, history of hyperlipidemia, history of diabetes mellitus type 2, history of paroxysmal atrial fibrillation, history for coronary artery disease with history of angioplasty and stent placement in the past Past Medical History Past Medical History: Coronary Artery Disease (CAD), Diabetes Mellitus, Hyperlipidemia, Hypertension, Myocardial Infarction ([place]), Osteoarthritis (OA) Additional Past Medical History / Comment(s): [place] 2009 with ischemic cardiomyopathy. 2016 stent placed Last Myocardial Infarction Date:: 02/16/10 History of Any Multi-Drug Resistant Organisms: None Reported Past Surgical History: Heart Catheterization With Stent, Hysterectomy Additional Past Surgical History / Comment(s): 10/06/15 PTCA with stent to LAD. 02/16/10 PTCA with stent to LAD, L carpal tunnel release. 2019 hysterectomy Past Anesthesia/Blood Transfusion Reactions: No Reported Reaction Date of Last Stent Placement:: 10/06/15 Past Psychological History: No Psychological Hx Reported Smoking Status: Former smoker Past Alcohol Use History: None Reported Past Drug Use History: None Reported - Past Family History Father Family Medical History: Coronary Artery Disease (CAD), Dementia, Diabetes Mellitus Additional Family Medical History / Comment(s): Father is . He had 4 vessel bypass. Mother Family Medical History: Rheumatoid Arthritis (RA) Additional Family Medical History / Comment(s): Mother is . She had polymyalgia and spinal stenosis. Medications and Allergies Home Medications Medication Instructions Recorded Confirmed Type Calcium Carbonate [Calcium] 600 mg PO HS 10/06/15 01/24/23 History Ubidecarenone [Co Q-10] 200 mg PO DAILY 10/06/15 01/24/23 History glipiZIDE [Glucotrol] 10 mg PO AC-BID #60 tablet 10/07/15 01/24/23 Rx metFORMIN HCL [Glucophage] 850 mg PO BID #60 tab 10/07/15 01/24/23 Rx Ascorbic Acid [Vitamin C] 500 mg PO DAILY 04/22/17 01/24/23 History Losartan Potassium 100 mg PO DAILY 06/11/19 01/24/23 History Vit C/E/Zn/Coppr/Lutein/Zeaxan 1 tab PO BID 01/05/22 01/24/23 History [Preservision Areds 2 Softgel] ALPRAZolam [Xanax] 0.25 mg PO BID PRN 02/18/22 01/24/23 History Escitalopram [Lexapro] 5 mg PO DAILY 02/18/22 01/24/23 History Cholecalciferol [Vitamin D3 (25 50 mcg PO DAILY 09/25/22 01/24/23 History Mcg = 1000 Iu)] Apixaban [Eliquis] 5 mg PO BID #180 tab 09/28/22 01/24/23 Rx Metoprolol Succinate (ER) [Toprol 100 mg PO DAILY #90 tab 09/28/22 01/24/23 Rx XL] Spironolactone [Aldactone] 25 mg PO DAILY #90 tab 09/28/22 01/24/23 Rx Atorvastatin [Lipitor] 80 mg PO DAILY 01/24/23 01/24/23 History Clopidogrel [Plavix] 75 mg PO HS 01/24/23 01/24/23 History Nitroglycerin Sl Tabs [Nitrostat] 0.4 mg SL Q5M PRN 01/24/23 01/24/23 History Omeprazole 20 mg PO DAILY 01/24/23 01/24/23 History Allergies Allergy/AdvReac Type Severity Reaction Status Date / Time No Known Allergies Allergy Verified 01/24/23 13:37 Physical Exam Vitals: Vital Signs Temp Pulse Resp BP Pulse Ox 01/25/23 06:02 83 16 160/86 97 01/25/23 00:51 71 18 130/65 01/24/23 23:05 66 18 160/78 01/24/23 16:12 70 18 180/98 97 01/24/23 14:30 70 16 175/108 97 01/24/23 11:33 98 F 84 20 172/90 99 In general patient is alert and oriented x 3 in no distress HEENT head normocephalic and atraumatic Neck is supple no JVD no goiter no lymphadenopathy no carotid bruit Chest examination is clear to auscultation no crackles no wheezing Cardiac exam reveals regular heart sounds S1 and S2 no gallops no murmurs Abdomen is soft nontender no organomegaly with normal bowel sounds Extremity exam reveals no edema no cyanosis or clubbing Neurological examination reveals no gross focal deficits Results CBC & Chem 7: 01/25/23 04:00 01/25/23 04:00 Labs: Abnormal Lab Results - Last 24 Hours (Table) 01/24/23 01/24/23 01/24/23 Range/Units 12:39 12:39 20:04 Hgb (11.4-16.0) gm/dL Hct (34.0-46.0) % D-Dimer 0.62 H (<0.60) mg/L FEU Chloride 109 H (98-107) mmol/L Glucose 171 H (74-99) mg/dL POC Glucose (mg/dL) 199 H (70-110) mg/dL 01/24/23 01/25/23 01/25/23 Range/Units 21:42 04:00 04:00 Hgb 10.5 L (11.4-16.0) gm/dL Hct 32.4 L (34.0-46.0) % D-Dimer 0.62 H (<0.60) mg/L FEU Chloride 108 H (98-107) mmol/L Glucose 176 H (74-99) mg/dL POC Glucose (mg/dL) (70-110) mg/dL Assessment and Plan Plan: Episodes of chest pain Elevated d-dimer check CT angiogram of the chest Underlying history of hypertension Underlying history of hyperlipidemia Underlying history of paroxysmal atrial fibrillation Underlying history of diabetes mellitus type 2 At this time patient is admitted to telemetry floor Serial EKG and cardiac enzymes are ordered Home medications reviewed and reordered CT angiogram of the chest ordered Cardiology consultation requested Will follow closely
--- NOTE | 2023-01-25 16:32 | P.DS ---
Providers Date of admission: 01/24/23 15:38 Expected date of discharge: 01/25/23 Attending physician: Елена Marcos Consults: 01/24/23 15:38 Consult Physician Urgent Consulting Provider: [facility] Consult Reason/Comments: acute chest pain Do you want consulting provider notified?: Yes Primary care physician: Catalina Kelley [facility] Course: Diagnosis on discharge: Episodes of chest pain Elevated d-dimer check CT angiogram of the chest Underlying history of hypertension Underlying history of hyperlipidemia Underlying history of paroxysmal atrial fibrillation Underlying history of diabetes mellitus type 2 Hospital course: Greer Hammonds, is a 72-year-old female who presented to [facility] emergency room with a chief complaint of chest pain. She was evaluated in the emergency room vital examination on presentation revealed a temperature of 98 pulse 84 respiration 20 blood pressure 172/90 pulse ox 99% on room air Laboratory data revealed a white blood count of 6.0 hemoglobin 11.6 platelet count 194 d-dimer 0.62 sodium 142 potassium 4.2 chloride 109 CO2 24 BUN 11 creatinine 0.81 troponin level 0.013 BNP 739 Testing in the emergency room revealed chest x-ray done in the emergency room revealed no evidence for acute pulmonary disease, EKG done in the emergency room revealed sinus rhythm with occasional supraventricular premature complexes Patient was admitted to medical floor for further evaluation and treatment Past medical history is significant for history of hypertension, history of hyperlipidemia, history of diabetes mellitus type 2, history of paroxysmal atrial fibrillation, history for coronary artery disease with history of angioplasty and stent placement in the past On 01/25/2023 patient was seen and examined on the telemetry floor she is alert and oriented 3 in no apparent distress her chest pain has resolved and she had no new episodes of chest pain, CT angiogram of the chest was done, and was negative for pulmonary embolism, there was however 2 new pulmonary nodules in the upper lobes measuring up to 7 mm on the right with recommendation of follow- up computed tomography scan of the chest in 3 months. Stress test was done on 01/25/2023 patient had increased TID at 1.23 which can be seen in the setting of multivessel global inducible ischemia, she also had large area of fixed perfusion defect along the inferior wall, case was discussed with Dr. Soto patient was cleared for discharge, she will follow with him as outpatient for further evaluation. Patient Condition at Discharge: Stable Plan - Discharge Summary New Discharge Prescriptions: Continue Ubidecarenone [Co Q-10] 200 mg PO DAILY Calcium Carbonate [Calcium] 600 mg PO HS glipiZIDE [Glucotrol] 10 mg PO AC-BID #60 tablet metFORMIN HCL [Glucophage] 850 mg PO BID #60 tab Ascorbic Acid [Vitamin C] 500 mg PO DAILY Losartan Potassium 100 mg PO DAILY Vit C/E/Zn/Coppr/Lutein/Zeaxan [Preservision Areds 2 Softgel] 1 tab PO BID Escitalopram [Lexapro] 5 mg PO DAILY Apixaban [Eliquis] 5 mg PO BID #180 tab Metoprolol Succinate (ER) [Toprol XL] 100 mg PO DAILY #90 tab Atorvastatin [Lipitor] 80 mg PO DAILY Nitroglycerin Sl Tabs [Nitrostat] 0.4 mg SL Q5M PRN PRN Reason: Chest Pain Omeprazole 20 mg PO DAILY ALPRAZolam [Xanax] 0.25 mg PO BID PRN PRN Reason: Anxiety Cholecalciferol [Vitamin D3 (25 Mcg = 1000 Iu)] 50 mcg PO DAILY Spironolactone [Aldactone] 25 mg PO DAILY #90 tab Clopidogrel [Plavix] 75 mg PO HS Discharge Medication List Calcium Carbonate [Calcium] 600 mg PO HS 10/06/15 [History] Ubidecarenone [Co Q-10] 200 mg PO DAILY 10/06/15 [History] glipiZIDE [Glucotrol] 10 mg PO AC-BID #60 tablet 10/07/15 [Rx] metFORMIN HCL [Glucophage] 850 mg PO BID #60 tab 10/07/15 [Rx] Ascorbic Acid [Vitamin C] 500 mg PO DAILY 04/22/17 [History] Losartan Potassium 100 mg PO DAILY 06/11/19 [History] Vit C/E/Zn/Coppr/Lutein/Zeaxan [Preservision Areds 2 Softgel] 1 tab PO BID 01/05/22 [History] ALPRAZolam [Xanax] 0.25 mg PO BID PRN 02/18/22 [History] Escitalopram [Lexapro] 5 mg PO DAILY 02/18/22 [History] Cholecalciferol [Vitamin D3 (25 Mcg = 1000 Iu)] 50 mcg PO DAILY 09/25/22 [History] Apixaban [Eliquis] 5 mg PO BID #180 tab 09/28/22 [Rx] Metoprolol Succinate (ER) [Toprol XL] 100 mg PO DAILY #90 tab 09/28/22 [Rx] Spironolactone [Aldactone] 25 mg PO DAILY #90 tab 09/28/22 [Rx] Atorvastatin [Lipitor] 80 mg PO DAILY 01/24/23 [History] Clopidogrel [Plavix] 75 mg PO HS 01/24/23 [History] Nitroglycerin Sl Tabs [Nitrostat] 0.4 mg SL Q5M PRN 01/24/23 [History] Omeprazole 20 mg PO DAILY 01/24/23 [History] Follow up Appointment(s)/Referral(s): Catalina Kelley MD [Primary Care Provider] - 1-2 days
[2023-01-25 16:44] LABS: Glucose,Whole Blood 167 mg/dL (70-110)
== END 2023-01-25 17:16 | disposition home or self-care (01) ==
LOC: EC 11:23 → 6NMEDSUR 15:38 → 1SOBS 01-25 12:07
PROVIDERS: ADMIT Internal Medicine; ATTEND Internal Medicine
DX: R07.89 Other chest pain (principal); R79.89 Other specified abnormal findings of blood chemistry; I48.0 Paroxysmal atrial fibrillation; I25.10 Atherosclerotic heart disease of native coronary artery without angina pectoris; E11.9 Type 2 diabetes mellitus without complications; I10 Essential (primary) hypertension; I25.2 Old myocardial infarction; I25.5 Ischemic cardiomyopathy; Z79.899 Other long term (current) drug therapy; Z79.84 Long term (current) use of oral hypoglycemic drugs; Z79.01 Long term (current) use of anticoagulants; Z95.5 Presence of coronary angioplasty implant and graft; Z90.710 Acquired absence of both cervix and uterus; Z87.891 Personal history of nicotine dependence; Z83.3 Family history of diabetes mellitus; Z82.49 Family history of ischemic heart disease and other diseases of the circulatory system; Z82.61 Family history of arthritis; Z82.0 Family history of epilepsy and other diseases of the nervous system; E78.5 Hyperlipidemia, unspecified
CPT/HCPCS: 96376; 96374; 99285; 36415; 93005; 93017; 85379; 83880; 80053; 80048; 83690; 83735; 84484; 85025 ×2; 85610; 85730; 71046; 71275; 78452; G0378 ×3; A9500; J2270; J2785; Q9967

== ENCOUNTER → 2023-09-16 | Outpatient (CLI) | payer MEDICARE ==
--- NOTE | 2023-09-20 10:33 | MM ---
Reason for Exam: Screening (asymptomatic). Last mammogram was performed 1 year(s) and 1 month(s) ago. Patient History: Menarche at age 13. First Full-Term at age 26. Left ovary removed at age 71. Right ovary removed at age 71. Hysterectomy at age 71. Postmenopausal. Patient has history of breast feeding. Patient used Estrogen for 1 year. Patient used Progesterone for 1 year. Cyst Aspiration on the Right side. Cyst Aspiration on the Right side. Cyst Aspiration on the Right side. Cyst Aspiration on the Right side. Sister had breast cancer, age 50. Risk Values: Madison 5 year model risk: 3.4%. NCI Lifetime model risk: 9.3%. Prior Study Comparison: 07/21/2021 Bilateral Screening Mammogram, [facility]. 02/11/2022 Right MG 3D diag mammo w/cad RT, [facility]. 08/17/2022 Bilateral MG 3D screening mammo w/cad, [facility]. Tissue Density: The breast tissue is extremely dense which could obscure a lesion on mammography. Findings: Analyzed By CAD. There is no suspicious group of microcalcifications or new suspicious mass in either breast. Overall Assessment: Benign, BI-RAD 2 Management: Screening Mammogram of both breasts in 1 year. . Patient should continue monthly self-breast exams. A clinical breast exam by your physician is recommended on an annual basis. This exam should not preclude additional follow-up of suspicious palpable abnormalities. Note on Madison scores and lifetime risk: 1. A Madison score greater than 3% is considered moderate risk. If this is the case, consider specialist referral to assess eligibility for a risk reducing agent. 2. If overall lifetime risk for the development of breast cancer is 20% or higher, the patient may qualify for future screening with alternating mammogram and breast MRI. Electronically signed and approved by: Hamilton Duong M.D. Radiologis
== END | disposition home or self-care (01) ==
LOC: RADMAMWWP 09:58
PROVIDERS: ATTEND Family Medicine
DX: Z12.31 Encounter for screening mammogram for malignant neoplasm of breast (principal); Z78.0 Asymptomatic menopausal state; Z80.3 Family history of malignant neoplasm of breast
CPT/HCPCS: 77063; 77067

== ENCOUNTER 2024-07-19 05:37 | Day surgery (SDC) | payer MEDICARE ==
[2024-07-19 06:38] LABS: Glucose,Whole Blood 209 mg/dL (70-110)
[2024-07-19 06:51] LABS: Basophils % (A) 1 %; Eosinophils # (A) 0.1 k/uL (0-0.7); Eosinophils % (A) 2 %; HCT 40.5 % (34.0-46.0); HGB 13.2 gm/dL (11.4-16.0); Lymphocytes # (A) 1.7 k/uL (1.0-4.8); Lymphocytes % (A) 27 %; MCH 28.4 pg (25.0-35.0); MCHC 32.6 g/dL (31.0-37.0); MCV 87.1 fL (80.0-100.0); Mean Platelet Volume 7.8; Monocytes # (A) 0.3 k/uL (0-1.0); Monocytes % (A) 5 %; Neutrophils # (A) 4.1 k/uL (1.3-7.7); Neutrophils % (A) 64 %; Platelet Count 194 k/uL (150-450); RBC 4.65 m/uL (3.80-5.40); RDW 14.9 % (11.5-15.5); WBC 6.4 k/uL (3.8-10.6)
[2024-07-19] MEDS: SODIUM CHLORIDE 0.9% 1,000 ML IV SCH (06:55)
[2024-07-19] MEDS: IV FLUID CONTINUATION 1,000 ML IV ONE (06:55)
[2024-07-19 07:02] LABS: ALT 14 U/L (4-34); AST 18 U/L (14-36); African American GFR (CKD) 66 (>60 ml/min/1.73 sqM); Albumin 4.2 g/dL (3.5-5.0); Alkaline Phosphatase 95 U/L (38-126); Anion Gap 7 mmol/L; Blood Urea Nitrogen 15 mg/dL (7-17); Calcium 9.7 mg/dL (8.4-10.2); Carbon Dioxide 25 mmol/L (22-30); Chloride 107 mmol/L (98-107); Glucose 173 mg/dL (74-99); Non-African American GFR(CKD) 57 (>60 ml/min/1.73 sqM); Potassium 3.9 mmol/L (3.5-5.1); Sodium 139 mmol/L (137-145); Total Bilirubin 0.6 mg/dL (0.2-1.3); Total Protein 6.7 g/dL (6.3-8.2)
[2024-07-19] MEDS ORDERED: SUCCINYLCHOLINE CHLORIDE 200 MG/10 ML VIAL IV ONE (08:02)
[2024-07-19] MEDS ORDERED: fentaNYL (PF) 50 MCG/ML 2 ML AMP ONE (08:02)
[2024-07-19] MEDS ORDERED: HYDROmorphone (PF) 1 MG/ML ONE (08:02)
[2024-07-19] MEDS ORDERED: LIDOCAINE 1% INJ 10MG/ML (20 ML MDV) ONE (08:02)
[2024-07-19] MEDS ORDERED: MIDAZOLAM 2 MG/2 ML VIAL ONE (08:02)
[2024-07-19] MEDS ORDERED: HEPARIN SODIUM,PORCINE 5,000 UNIT/ML 1 ML VIAL ONE (08:02)
[2024-07-19] MEDS ORDERED: PHENYLEPHRINE 10 MG/ML VIAL ONE (08:02)
[2024-07-19] MEDS ORDERED: HEPARIN SODIUM,PORCINE 10,000 UNIT/ML 1 ML VIAL ONE (08:02)
[2024-07-19] MEDS ORDERED: PROPOFOL 10 MG/ML 20 ML VIAL IV ONE (08:02)
[2024-07-19] MEDS ORDERED: ROCURONIUM 10 MG/ML (5 ML VIAL) IV ONE (08:02)
[2024-07-19] MEDS: HEPARIN SODIUM,PORCINE 10,000 UNIT in SODIUM CHLORIDE 0.9% 1,000 ML IRRIGATION ONE (08:19)
[2024-07-19] MEDS: HEPARIN SOD,PORK IN 0.45% NACL 25,000 UNIT in 0.45% NACL 1 250ML.BAG IV ONE (08:20)
[2024-07-19] MEDS: HEPARIN SODIUM,PORCINE (1 ML) 2,500 UNIT in SODIUM CHLORIDE 0.9% 250 ML IRRIGATION ONE (08:20)
--- NOTE | 2024-07-19 08:21 | P.HPCAR ---
History of Present Illness This is Dr. Moreau dictating an H/P on this patient The patient was interviewed and examined IMPRESSION / ASSESSMENT: Paroxysmal atrial fibrillation, symptomatic History of electrical cardioversion FLEX showed a left ventricular ejection fraction of about 47% Underlying ischemic cardiomyopathy status post stenting to the LAD to 2009 and then in 2015 and again in 2022 Type 2 diabetes Denies any angina syncope or undue shortness of breath in the last 1 to 2 weeks PLAN: A-fib ablation Continue anticoagulation Continue cardiomyopathy medications HPI Patient has a history of recurrent atrial fibrillation that is quite symptomatic and triggers chest discomfort/angina like symptoms. She has known underlying ischemic cardiomyopathy and multiple coronary stents in the LAD territory She denies any syncope chest pain or undue shortness of breath in the last few weeks No fever chills cough expectoration ROS: No fever chills or rigors, no cough, phlegm or expectoration, no nausea, vomiting or diarrhea, no hematuria, dysuria, no musculoskeletal complaints, no strokes or seizures, no skin lesions. EXAMINATION: 137/80 mmHg pulse rate 110 beats a minute Intake examination normal No JVD Heart sounds are normal Breath sounds are clear No lower extremity edema Soft abdomen nontender REVIEW OF LABS, ECG & MEDICAL DATA Hemoglobin 13.2, platelet count 194,000 Electrolytes normal BUN/creatinine 15 and 1.0 TSH 0.97 Physical Exam Vitals: Vital Signs Temp Pulse Resp BP BP Pulse Ox 07/19/24 06:35 98.5 F 110 H 16 137/80 139/102 99 Intake and Output 07/18/24 07/19/24 07/19/24 22:59 06:59 14:59 Intake Total 0 Balance 0 Intake: IV 0 Other: Weight 76.1 kg Past Medical History Past Medical History: Atrial Fibrillation, Coronary Artery Disease (CAD), Diabetes Mellitus, GERD/Reflux, Hyperlipidemia, Hypertension, Myocardial Infarction ([place]), Osteoarthritis (OA) Additional Past Medical History / Comment(s): [place] 2010 with ischemic cardiomyopathy. 2016 stent placed, cardioversion failedx2 See dr Moreau;s h & p. coughing up phlegm draining back of throat - clear, pt to let Dr Moreau know. torn rt meniscus Last Myocardial Infarction Date:: 2022 History of Any Multi-Drug Resistant Organisms: None Reported Past Surgical History: Heart Catheterization With Stent, Hysterectomy Additional Past Surgical History / Comment(s): 2/22/16 PTCA with stent to LAD. 02/16/10 PTCA with stent to LAD, total of 3 stents, L carpal tunnel release. 2019 hysterectomy robert cataracts, Left trigger finger surgery x3 Past Anesthesia/Blood Transfusion Reactions: No Reported Reaction Date of Last Stent Placement:: 2022 Smoking Status: Former smoker - Past Family History Father Family Medical History: Coronary Artery Disease (CAD), Dementia, Diabetes Mellitus Additional Family Medical History / Comment(s): Father is . He had 4 vessel bypass. Mother Family Medical History: Rheumatoid Arthritis (RA) Additional Family Medical History / Comment(s): Mother is . She had polymyalgia and spinal stenosis. Physical Examination Vital Signs Temp Pulse Resp BP BP Pulse Ox 07/19/24 06:35 98.5 F 110 H 16 137/80 139/102 99 Intake and Output 07/18/24 07/19/24 07/19/24 22:59 06:59 14:59 Intake Total 0 Balance 0 Intake: IV 0 Other: Weight 76.1 kg Results 07/19/24 06:25 07/19/24 06:25 Cardiac Enzymes 07/19/24 Range/Units 06:25 AST 18 (14-36) U/L CBC 07/19/24 Range/Units 06:25 WBC 6.4 (3.8-10.6) k/uL RBC 4.65 (3.80-5.40) m/uL Hgb 13.2 (11.4-16.0) gm/dL Hct 40.5 (34.0-46.0) % Plt Count 194 (150-450) k/uL Comprehensive Metabolic Panel 07/19/24 Range/Units 06:25 Sodium 139 (137-145) mmol/L Potassium 3.9 (3.5-5.1) mmol/L Chloride 107 (98-107) mmol/L Carbon Dioxide 25 (22-30) mmol/L BUN 15 (7-17) mg/dL Creatinine 1.00 (0.52-1.04) mg/dL Glucose 173 H (74-99) mg/dL Calcium 9.7 (8.4-10.2) mg/dL AST 18 (14-36) U/L ALT 14 (4-34) U/L Alkaline Phosphatase 95 (38-126) U/L Total Protein 6.7 (6.3-8.2) g/dL Albumin 4.2 (3.5-5.0) g/dL Current Medications Generic Name Dose Route Start Last Admin Trade Name Freq PRN Reason Stop Dose Admin Sodium Chloride 1,000 mls @ 20 mls/hr 07/19/24 05:56 07/19/24 06:55 Saline 0.9% IV 08/18/24 05:55 20 mls/hr .Q24H KACIE Administration Lactated Ringer's 1,000 mls @ 20 mls/hr 07/19/24 05:56 Lactated Ringers IV 08/18/24 05:55 .Q24H KACIE Intake and Output 07/18/24 07/19/24 07/19/24 22:59 06:59 14:59 Intake Total 0 Balance 0 Intake: IV 0 Other: Weight 76.1 kg 07/19/24 06:25 07/19/24 06:25
[2024-07-19] MEDS: LIDOCAINE 1% INJ 10MG/ML (20 ML MDV) SQ ONE (08:45)
[2024-07-19] MEDS: SODIUM CHLORIDE 0.9% 500 ML 500 ML IV ONE (10:16)
[2024-07-19] MEDS: IOPAMIDOL-370 100ML BTL INJ ONE (10:24)
--- NOTE | 2024-07-19 10:59 | P.EPPROC ---
- EP Procedure Note Electrophysiology Procedure Note: PROCEDURE A. fib ablation with PVI, left atrial septal ablation and left atrial roof ablation DIAGNOSIS Persistent atrial fibrillation, symptomatic, refractory to therapy RESULT No left atrial appendage mass seen on intracardiac echo Successful A. fib ablation/pulmonary vein isolation of all veins using cryo- ablation Left atrial septal ablation Left atrial roof ablation Complete entrance block in all 4 veins confirmed No evidence for phrenic nerve injury Esophageal deflection YES Electrical cardioversion for residual atrial tachycardia 260 ms with a synchronized shock across the chest YES PROCEDURE DETAILS Written informed consent prior to procedure. Patient brought to the EP lab. General anesthesia given. Heparin administered. A city maintained above 300 seconds Both groins prepped and draped per protocol and venous sheaths placed. Esophagus intubated, circa catheter for temperature monitoring an endoscope for possible esophageal deflection. Phrenic nerve monitoring performed. Esophageal temperature monitoring performed. Esophageal deflection performed if circa catheter overlapping with the balloon or circa temperature less than 27.5C Intracardiac echocardiography performed. Pericardium evaluated. Left atrial appendage evaluated. Left atrium evaluated along with pulmonary veins Transseptal catheterization performed under fluoroscopic guidance and intracardiac echo guidance Cryoablation sheath exchanged, balloon catheter along with achieve catheter placed in the left atrium. Pulmonary veins isolated in the following sequence: Left superior pulmonary vein followed by left inferior pulmonary vein, followed by right inferior pulmonary vein and lastly right superior pulmonary vein. Phrenic nerve stimulation along with capture thresholds within the SVC and right superior pulmonary vein to identify the phrenic nerve proximity to the cryo- balloon. Pulmonary veins isolated and confirmed with entrance and exit block. Phrenic nerve integrity confirmed at the end of the procedure Ablation of the left atrial roof performed with sequential lesions from the left superior to the right superior pulmonary veins. Ablation of the electrograms confirmed Ablation of the left atrial septum performed with cannulation of the superior branch of the right inferior and the inferior branch of the right superior vein to achieve ablation of the posterior septum of the left atrium. Ablation of electrograms confirmed Electrical cardioversion performed for persistence of atrial tachycardia, atrial cycle length 260 ms, entrained from the CS os, despite successful ablation. Diagnostic catheters for the high right atrium, His bundle, coronary sinus pl aced. LA and RA pressures recorded RA pressure: 9/6/8 LA pressure: 17/4/10 Diagnostic EP study with coronary sinus pacing and recording Baseline measurements: In sinus rhythm AH interval 76 ms, HV interval 41 ms, QT interval 310 ms, QRS 88 ms Venous sheaths were removed and hemostasis assured with a closure device. Patient extubated and transferred to recovery Increase procedural time This was a long procedure. After ablation of the right inferior and right superior pulmonary veins a white/space was noted in the septum and between the veins. RF ablation of the septum was performed with cannulation of the lower branch of the superior as well as the upper branch of the inferior vein with good overlap and confirmed ablation of atrial electrograms in the septum with conventional mapping The patient remained in atrial fibrillation with after PVI and left atrial septal ablation and the left atrial roof line was then made sequentially and successfully with ablation of electrograms. Atrial fibrillation organized to an atrial tachycardia cycle length of 260 ms, entrained from the coronary sinus os, PPI within 10 ms of the tachycardia cycle length PROCEDURES PERFORMED Diagnostic EP study CS pacing and recording Left and right transseptal catheterization Catheter the mapping of the tachycardia Intracardiac echocardiography Pulmonary vein isolation with transseptal and comprehensive EPS, [id number] Left atrial roof line, +[id number] Linear ablation, left atrium, +[id number] Electrical cardioversion with a synchronized shock across the chest [id number]
[2024-07-19 11:22] LABS: Glucose,Whole Blood 190 mg/dL (70-110)
[2024-07-19 12:18] LABS: Glucose,Whole Blood 196 mg/dL (70-110)
[2024-07-19] MEDS ORDERED: DEXTROSE 50% SYRINGE 50 ML IVP PRN ×2 (12:32)
[2024-07-19] MEDS: LACTATED RINGERS 1,000 ML IV SCH (12:44)
[2024-07-19] MEDS: INSULIN ASPART (NovoLOG) 100 UNIT/ML VIAL SQ SCH (12:47)
[2024-07-19] MEDS: ACETAMINOPHEN IV (For NPO) 1,000 MG in EMPTY BAG 1 BAG IVPB ONE (12:48)
[2024-07-19 17:25] LABS: Glucose,Whole Blood 192 mg/dL (70-110)
[2024-07-19] MEDS: glipiZIDE 10 MG TAB PO SCH (17:35)
[2024-07-19 20:07] LABS: Glucose,Whole Blood 183 mg/dL (70-110)
[2024-07-19] MEDS: ATORVASTATIN 80 MG TAB PO SCH (20:49)
[2024-07-19] MEDS: SACUBITRIL/VALSARTAN 24 MG-26 MG TABLET PO SCH (20:49)
[2024-07-19] MEDS: APIXABAN 5 MG TAB PO SCH (20:49)
[2024-07-19] MEDS: ACETAMINOPHEN TAB 325 MG TAB PO PRN (20:52)
[2024-07-20 05:45] LABS: Glucose,Whole Blood 109 mg/dL (70-110)
[2024-07-20 07:08] VITALS: BP 124/75; PULSE 90; RESP 16; TEMP 98.1
[2024-07-20] MEDS: DAPAGLIFLOZIN PROPANEDIOL 5 MG TABLET PO SCH (08:41)
[2024-07-20] MEDS: FUROSEMIDE 20 MG TAB PO SCH (08:41)
[2024-07-20] MEDS: METOPROLOL SUCCINATE (ER) 100 MG TAB.ER.24H PO SCH (08:41)
[2024-07-20] MEDS: ESCITALOPRAM 5 MG TAB PO SCH (08:41)
[2024-07-21] MEDS ORDERED: metFORMIN 850 MG TAB PO SCH (21:00)
== END 2024-07-20 10:36 | disposition home or self-care (01) ==
LOC: CATHEP 05:37 → 6NMEDSUR 10:53 → CATHEP 07-20 10:36
PROVIDERS: ATTEND Internal Medicine Clinical Cardiac Electrophysiology
DX: I48.19 Other persistent atrial fibrillation (principal); E11.9 Type 2 diabetes mellitus without complications; E78.5 Hyperlipidemia, unspecified; I10 Essential (primary) hypertension; I25.10 Atherosclerotic heart disease of native coronary artery without angina pectoris; I25.2 Old myocardial infarction; I25.5 Ischemic cardiomyopathy; K21.9 Gastro-esophageal reflux disease without esophagitis; M19.90 Unspecified osteoarthritis, unspecified site; Z79.01 Long term (current) use of anticoagulants; Z87.891 Personal history of nicotine dependence; Z90.710 Acquired absence of both cervix and uterus; Z95.5 Presence of coronary angioplasty implant and graft
CPT/HCPCS: 92960; 93656; 93657; 86900; 86901; 80053; 84443; 85025; 86850; 83036; J1644 ×3; J2003; J0131; Q9967